=== PATIENT | female | born 1980 | race Caucasian/White ===

== ENCOUNTER 2017-12-11 15:02 | Emergency (ER) | payer OTHER ==
[2017-12-11 16:47] LABS: Basophils # (A) 0.1 k/uL (0-0.2); Basophils % (A) 0 %; Eosinophils # (A) 0.1 k/uL (0-0.7); Eosinophils % (A) 0 %; HCT 45.4 % (34.0-46.0); HGB 14.7 gm/dL (11.4-16.0); Lymphocytes # (A) 3.6 k/uL (1.0-4.8); Lymphocytes % (A) 27 %; MCH 27.9 pg (25.0-35.0); MCHC 32.4 g/dL (31.0-37.0); MCV 86.3 fL (80.0-100.0); Mean Platelet Volume 6.9; Monocytes # (A) 0.7 k/uL (0-1.0); Monocytes % (A) 6 %; Neutrophils # (A) 8.3 k/uL (1.3-7.7); Neutrophils % (A) 63 %; Platelet Count 444 k/uL (150-450); RBC 5.27 m/uL (3.80-5.40); RDW 14.9 % (11.5-15.5); WBC 13.2 k/uL (3.8-10.6)
[2017-12-11 16:54] LABS: Amorphous Sediment,Urine Rare /hpf; Appearance,Urine Cloudy (Clear); Bacteria,Urine Occasional /hpf; Bilirubin,Urine Negative (Negative); Blood,Urine Negative (Negative); Color,Urine Yellow; Glucose,Urine (UA) Negative (Negative); Ketones,Urine Negative (Negative); Leukocyte Esterase,Urine Moderate (Negative); Mucus,Urine Rare /hpf; Nitrite,Urine Negative (Negative); Protein,Urine Trace (Negative); RBC,Urine 3 /hpf (0-5); Specific Gravity,Urine 1.019 (1.001-1.035); Squamous Epithelial Cell,Urine 14 /hpf (0-4); Urobilinogen,Urine <2.0 mg/dL (<2.0); WBC,Urine 16 /hpf (0-5)
[2017-12-11 17:03] LABS: ALT 81 U/L (9-52); AST 53 U/L (14-36); Albumin 4.9 g/dL (3.5-5.0); Alkaline Phosphatase 68 U/L (38-126); Amylase 84 U/L (30-110); Anion Gap 18 mmol/L; Blood Urea Nitrogen 14 mg/dL (7-17); Calcium 10.4 mg/dL (8.4-10.2); Carbon Dioxide 22 mmol/L (22-30); Chloride 104 mmol/L (98-107); Glucose 99 mg/dL (74-99); Lipase 43 U/L (23-300); Potassium 4.3 mmol/L (3.5-5.1); Sodium 144 mmol/L (137-145); Total Bilirubin 0.6 mg/dL (0.2-1.3); Total Protein 9.3 g/dL (6.3-8.2)
[2017-12-11] MEDS ORDERED: SODIUM CHLORIDE 0.9% 1,000 ML IV ONE (18:52)
[2017-12-11] MEDS ORDERED: KETOROLAC 30 MG/ML 1 ML VIAL IVP STA (18:52)
[2017-12-11] MEDS ORDERED: RX INFO: IV CONTRAST WAS GIVEN 1 EACH MISC MISCELLANE PRN (18:52)
[2017-12-11] MEDS ORDERED: ONDANSETRON 4 MG/2 ML VIAL IVP STA (18:52)
--- NOTE | 2017-12-11 18:59 | ED ---
Abdominal Pain HPI - General Chief Complaint: Abdominal Pain Stated Complaint: abdominal pain Time Seen by Provider: 12/11/17 18:41 Source: patient Mode of arrival: ambulatory Limitations: no limitations - History of Present Illness Initial Comments: 37-year-old female patient presents to the emergency department today for evaluation of left-sided abdominal pain. Patient states this started yesterday evening. States that she has no will to keep down any food or fluids today. Has had multiple episodes of vomiting. Patient states she has had several episodes of diarrhea but denies any hematochezia or melena. 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 Patient states she has had chills and fever. States she has been taking ibuprofen for her symptoms however they're not helping. Patient has a history of hepatitis C. States that she has also been having abnormal vaginal discharge that is odorous. She denies any hematuria, dysuria, urinary frequency, urinary urgency. Patient states she has not had a menstrual period in the last 8 years and does not believe she is . She denies any recent travel or sick contacts. She denies any ingestion of questionable foods. Patient denies any recent rash, shortness breath, chest pain, back pain, numbness, tingling, dizziness, weakness, headache, visual changes, or any other complaints. - Related Data Home Medications Medication Instructions Recorded Confirmed Calcium Carb/Magnesium Ox,Carb 2 tab PO DAILY PRN 12/11/17 12/11/17 [Saud-Mag 500-250 MG Chewable] Hyoscyamine Sulfate [Levsin-Sl] 0.125 mg SL QID PRN 12/11/17 12/11/17 Loperamide HCl [Imodium A-D] 4 mg PO BID PRN 12/11/17 12/11/17 Mirtazapine [Remeron] 15 mg PO HS PRN 12/11/17 12/11/17 Multivitamins, Thera [Multivitamin 1 tab PO DAILY 12/11/17 12/11/17 (formulary)] Thiamine [Vitamin B-1] 100 mg PO DAILY 12/11/17 12/11/17 Trimethobenzamide HCl [Tigan] 300 mg PO Q6H PRN 12/11/17 12/11/17 busPIRone HCl [Buspar] 10 mg PO TID 12/11/17 12/11/17 Previous Rx's Medication Instructions Recorded Ondansetron [Zofran ODT] 4 mg PO Q8HR PRN #10 tab 12/11/17 Allergies Allergy/AdvReac Type Severity Reaction Status Date / Time No Known Allergies Allergy Verified 12/11/17 19:10 Review of Systems ROS Statement: Those systems with pertinent positive or pertinent negative responses have been documented in the HPI. ROS Other: All systems not noted in ROS Statement are negative. 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 Vital signs upon presentation are temperature 100.7F, pulse 110, respirations 18, blood pressure 130/77, pulse ox 100% on room air.) Eye exam: Present: normal appearance, PERRL, EOMI. Absent: scleral icterus, conjunctival injection, periorbital swelling ENT exam: Present: normal exam, normal oropharynx, mucous membranes moist Respiratory exam: Present: normal lung sounds bilaterally. Absent: respiratory distress, wheezes, rales, rhonchi, stridor Cardiovascular Exam: Present: regular rate, normal rhythm, normal heart sounds. Absent: systolic murmur, diastolic murmur, rubs, gallop, clicks GI/Abdominal exam: Present: soft, tenderness (Left lower quadrant tenderness), normal bowel sounds. Absent: distended, guarding, rebound, rigid External exam: Present: normal external exam Speculum exam: Present: vaginal discharge (Copious light thin vaginal discharge. ). Absent: normal speculum exam, vaginal bleeding By manual exam: Present: normal by manual exam. Absent: cervical motion tenderness, adnexal tenderness Neurological exam: Present: alert, oriented X3, CN II-XII intact Psychiatric exam: Present: normal affect, normal mood Skin exam: Present: warm, dry, intact, normal color. Absent: rash Course Vital Signs 12/11/17 15:24 Temperature 100.7 F H Pulse Rate 110 H Respiratory 18 Rate Blood Pressure 130/77 O2 Sat by Pulse 100 Oximetry Medical Decision Making - Medical Decision Making 37 year-old female patient presents to the emergency department today for evaluation of left-sided abdominal pain, vomiting, and diarrhea. Physical examination did reveal some left-sided abdominal tenderness, no rebound, no guarding. Labs reviewed and showed a mildly elevated white blood cell count at 13.2, neutrophils 8.3, AST 53, ALT 81, lactic acid 1.6. Patient was also complaining of increased vaginal discharge and odor. Speculum exam did reveal copious amounts of thin white discharge. Cultures were sent. Patient was treated for trichomoniasis. Did discuss HIV testing and she'll follow-up with the health department for this. Patient is on day 10 at [facility] facility, I feel her symptoms are more related to a gastroenteritis and withdrawal symptoms. She'll be given a prescription for Zofran to manage and nausea. We discussed clear liquid diet and advance as tolerated. She is instructed to follow-up with her primary care physician for recheck in 1-2 days. Return parameters discussed in detail. She verbalizes understanding and agrees with this plan. - Lab Data Result diagrams: 12/11/17 16:37 12/11/17 16:37 Lab Results 12/11/17 12/11/17 12/11/17 Range/Units 16:37 16:37 16:37 WBC 13.2 H (3.8-10.6) k/uL RBC 5.27 (3.80-5.40) m/uL Hgb 14.7 (11.4-16.0) gm/dL Hct 45.4 (34.0-46.0) % MCV 86.3 (80.0-100.0) fL MCH 27.9 (25.0-35.0) pg MCHC 32.4 (31.0-37.0) g/dL RDW 14.9 (11.5-15.5) % Plt Count 444 (150-450) k/uL Neutrophils % 63 % Lymphocytes % 27 % Monocytes % 6 % Eosinophils % 0 % Basophils % 0 % Neutrophils # 8.3 H (1.3-7.7) k/uL Lymphocytes # 3.6 (1.0-4.8) k/uL Monocytes # 0.7 (0-1.0) k/uL Eosinophils # 0.1 (0-0.7) k/uL Basophils # 0.1 (0-0.2) k/uL Sodium 144 (137-145) mmol/L Potassium 4.3 (3.5-5.1) mmol/L Chloride 104 (98-107) mmol/L Carbon Dioxide 22 (22-30) mmol/L Anion Gap 18 mmol/L BUN 14 (7-17) mg/dL Creatinine 0.90 (0.52-1.04) mg/dL Est GFR (CKD-EPI)AfAm >90 (>60 ml/min/1.73 sqM) Est GFR (CKD-EPI)NonAf 83 (>60 ml/min/1.73 sqM) Glucose 99 (74-99) mg/dL Plasma Lactic Acid Jez (0.7-2.0) mmol/L Calcium 10.4 H (8.4-10.2) mg/dL Total Bilirubin 0.6 (0.2-1.3) mg/dL AST 53 H (14-36) U/L ALT 81 H (9-52) U/L Alkaline Phosphatase 68 (38-126) U/L Total Protein 9.3 H (6.3-8.2) g/dL Albumin 4.9 (3.5-5.0) g/dL Amylase 84 (30-110) U/L Lipase 43 (23-300) U/L Urine Color Yellow Urine Appearance Cloudy H (Clear) Urine pH 8.0 (5.0-8.0) Ur Specific Fenton 1.019 (1.001-1.035) Urine Protein Trace H (Negative) Urine Glucose (UA) Negative (Negative) Urine Ketones Negative (Negative) Urine Blood Negative (Negative) Urine Nitrite Negative (Negative) Urine Bilirubin Negative (Negative) Urine Urobilinogen <2.0 (<2.0) mg/dL Ur Leukocyte Esterase Moderate H (Negative) Urine RBC 3 (0-5) /hpf Urine WBC 16 H (0-5) /hpf Ur Squamous Epith Cells 14 H (0-4) /hpf Amorphous Sediment Rare H (None) /hpf Urine Bacteria Occasional H (None) /hpf Urine Mucus Rare H (None) /hpf Urine HCG, Qual (Not Detectd) Trichomonas Ag (Rapid) (Negative) 05/21/18 05/21/18 05/21/18 Range/Units 16:37 19:37 20:52 WBC (3.8-10.6) k/uL RBC (3.80-5.40) m/uL Hgb (11.4-16.0) gm/dL Hct (34.0-46.0) % MCV (80.0-100.0) fL MCH (25.0-35.0) pg MCHC (31.0-37.0) g/dL RDW (11.5-15.5) % Plt Count (150-450) k/uL Neutrophils % % Lymphocytes % % Monocytes % % Eosinophils % % Basophils % % Neutrophils # (1.3-7.7) k/uL Lymphocytes # (1.0-4.8) k/uL Monocytes # (0-1.0) k/uL Eosinophils # (0-0.7) k/uL Basophils # (0-0.2) k/uL Sodium (137-145) mmol/L Potassium (3.5-5.1) mmol/L Chloride (98-107) mmol/L Carbon Dioxide (22-30) mmol/L Anion Gap mmol/L BUN (7-17) mg/dL Creatinine (0.52-1.04) mg/dL Est GFR (CKD-EPI)AfAm (>60 ml/min/1.73 sqM) Est GFR (CKD-EPI)NonAf (>60 ml/min/1.73 sqM) Glucose (74-99) mg/dL Plasma Lactic Acid Jez 1.6 (0.7-2.0) mmol/L Calcium (8.4-10.2) mg/dL Total Bilirubin (0.2-1.3) mg/dL AST (14-36) U/L ALT (9-52) U/L Alkaline Phosphatase (38-126) U/L Total Protein (6.3-8.2) g/dL Albumin (3.5-5.0) g/dL Amylase (30-110) U/L Lipase (23-300) U/L Urine Color Urine Appearance (Clear) Urine pH (5.0-8.0) Ur Specific Fenton (1.001-1.035) Urine Protein (Negative) Urine Glucose (UA) (Negative) Urine Ketones (Negative) Urine Blood (Negative) Urine Nitrite (Negative) Urine Bilirubin (Negative) Urine Urobilinogen (<2.0) mg/dL Ur Leukocyte Esterase (Negative) Urine RBC (0-5) /hpf Urine WBC (0-5) /hpf Ur Squamous Epith Cells (0-4) /hpf Amorphous Sediment (None) /hpf Urine Bacteria (None) /hpf Urine Mucus (None) /hpf Urine HCG, Qual Not Detected (Not Detectd) Trichomonas Ag (Rapid) Positive H (Negative) - Radiology Data Radiology results: report reviewed, image reviewed CT of the abdomen and pelvis with contrast was obtained. Report was reviewed in its entirety. Impression by Dr. Gray shows negative computed tomography scan of the abdomen and pelvis. Disposition Clinical Impression: Abdominal pain, Gastroenteritis, Sexually transmitted infection, Trichomoniasis Disposition: HOME SELF-CARE Condition: Good Instructions: Gastroenteritis (ED), Abdominal Pain (ED) Additional Instructions: Follow-up with her primary care physician for recheck in 1-2 days. Take medications as directed. Return here immediately for any new, worsening, or concerning symptoms. Prescriptions: Ondansetron [Zofran ODT] 4 mg PO Q8HR PRN #10 tab PRN Reason: Nausea Is patient prescribed a controlled substance at d/c from ED?: No Referrals: None,Stated [Primary Care Provider] - 1-2 days Time of Disposition: 20:35
--- NOTE | 2017-12-11 20:10 | CT ---
EXAMINATION TYPE: CT abdomen pelvis w con DATE OF EXAM: 12/11/2017 COMPARISON: NONE HISTORY: Left side abd pain, nausea and vomiting. CT DLP: 771 mGycm Automated exposure control for dose reduction was used. TECHNIQUE: Helical acquisition of images was performed from the lung bases through the pelvis. CONTRAST: Performed without Oral Contrast and with IV Contrast, patient injected with 100ml mL of Isovue 300. FINDINGS: Lung bases are clear. There is no pleural effusion. Heart size is normal. Liver spleen pancreas gallbladder appear normal. Bile ducts are not dilated. There is no adrenal mass. The kidneys show satisfactory contrast opacification. There is no hydroneph rosis. I see no intestinal wall thickening. There are no dilated loops. Bladder distends smoothly. Th ere is no pelvic mass. The bony structures are intact. Appendix is not seen. There is no sign of appe ndicitis. IMPRESSION: NEGATIVE CT SCAN OF THE ABDOMEN AND PELVIS.
[2017-12-11] MEDS ORDERED: cefTRIAXone 250 MG VIAL IM STA (21:03)
[2017-12-11] MEDS ORDERED: metroNIDAZOLE 500 MG TAB PO STA (21:03)
[2017-12-11] MEDS ORDERED: AZITHROMYCIN 500 MG TAB PO STA (21:03)
[2017-12-11 21:34] VITALS: BP 145/97; PULSE 98; RESP 19; TEMP 97.1
[2017-12-12 15:15] LABS: C. trachomatis,PCR Negative (Neg,Equiv); Chlamydia trachomatis Source Vagina; N. gonorrhoeae,PCR Negative (Neg,Equiv); Neisseria Source Vagina
== END 2017-12-11 21:44 | disposition home or self-care (01) ==
LOC: EC 15:02
DX: K52.9 Noninfective gastroenteritis and colitis, unspecified (principal); A59.9 Trichomoniasis, unspecified; D72.829 Elevated white blood cell count, unspecified; F11.20 Opioid dependence, uncomplicated; F41.9 Anxiety disorder, unspecified; F17.200 Nicotine dependence, unspecified, uncomplicated; Z79.899 Other long term (current) drug therapy; Z86.14 Personal history of Methicillin resistant Staphylococcus aureus infection
CPT/HCPCS: 36415; 80053; 82150; 83605; 83690; 85025; 81001; 81025; 87040; 87808; 87491; 87591; 87070; 87205; 74177; 99284; 96374; 96375; 96361; 96372; J2405; J0696; J1885; Q9967

== ENCOUNTER 2018-12-16 18:44 | Inpatient (IN) | payer OTHER ==
[2018-12-16] MEDS ORDERED: KETOROLAC 30 MG/ML 1 ML VIAL IVP STA (19:49)
[2018-12-16] MEDS ORDERED: SODIUM CHLORIDE 0.9% 1,000 ML IV STA (19:49)
--- NOTE | 2018-12-16 20:47 | ED ---
General Adult HPI - General Source: patient Mode of arrival: ambulatory Limitations: no limitations <Ellen Mack - Last Filed: 12/17/18 00:09> <Halima Palmer - Last Filed: 12/17/18 07:34> - General Chief complaint: Back Pain/Injury Stated complaint: back and rt leg pain Time Seen by Provider: 12/16/18 19:27 - History of Present Illness Initial comments: 38-year-old female patient presents to the emergency department today for evaluation of mid thoracic back pain that radiates down her back and up into her neck. Patient states it is radiating down her right leg as well. Patient states this pain started 3 days ago. Patient is also reporting multiple abscesses to the left axillary region. Patient states she did recently have these incised and drained and was started on Bactrim. States she has taken 2 full days of Bactrim at this point. States she has been having low-grade fevers around 99.5F as well as chills. Patient states she has been nauseated. Patient is also reporting white vaginal discharge. States that she has had Trichomonas in the past and feels this is the same infection. She denies any pelvic pain, hematuria, dysuria, urinary urgency, urinary frequency. Patient is currently being treated at [facility] for intravenous drug use with heroin. Patient denies any recent rash, shortness breath, chest pain, abdominal pain, diarrhea, constipation, back pain, numbness, tingling, dizziness, weakness, headache, visual changes, or any other complaints. (Ellen Mack) - Related Data Home Medications Medication Instructions Recorded Confirmed Calcium Carb/Magnesium Ox,Carb 2 tab PO DAILY PRN 12/11/17 12/17/18 [Saud-Mag 500-250 MG Chewable] Multivitamins, Thera [Multivitamin 1 tab PO DAILY 12/11/17 12/17/18 (formulary)] Thiamine [Vitamin B-1] 100 mg PO DAILY 12/11/17 12/17/18 Previous Rx's Medication Instructions Recorded Ondansetron [Zofran ODT] 4 mg PO Q8HR PRN #10 tab 12/11/17 Allergies Allergy/AdvReac Type Severity Reaction Status Date / Time No Known Allergies Allergy Verified 12/11/17 19:10 Review of Systems ROS Other: All systems not noted in ROS Statement are negative. <Ellen Mack M - Last Filed: 12/17/18 00:09> ROS Other: All systems not noted in ROS Statement are negative. <Halima Palmer P - Last Filed: 12/17/18 07:34> ROS Statement: Those systems with pertinent positive or pertinent negative responses have been documented in the HPI. 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 Vital signs upon presentation are temperature 98.5F, pulse 89, respirations 18, blood pressure 101/62, pulse ox 98% on room air.) Eye exam: Present: normal appearance, PERRL, EOMI. Absent: scleral icterus, conjunctival injection, periorbital swelling ENT exam: Present: normal exam, normal oropharynx, mucous membranes moist Neck exam: Present: normal inspection. Absent: tenderness, meningismus, lymphadenopathy Respiratory exam: Present: normal lung sounds bilaterally. Absent: respiratory distress, wheezes, rales, rhonchi, stridor Cardiovascular Exam: Present: regular rate, normal rhythm, normal heart sounds. Absent: systolic murmur, diastolic murmur, rubs, gallop, clicks GI/Abdominal exam: Present: soft, normal bowel sounds. Absent: distended, tenderness, guarding, rebound, rigid Extremities exam: Present: full ROM, normal capillary refill, other (There are multiple small abscesses noted to the left axillary region. No erythema or cellulitis is noted.). Absent: normal inspection, tenderness, pedal edema, joint swelling, calf tenderness Back exam: Present: vertebral tenderness (There is mid thoracic tenderness, left paraspinal swelling.). Absent: normal inspection Neurological exam: Present: alert, oriented X3, CN II-XII intact Psychiatric exam: Present: normal affect, normal mood Skin exam: Present: warm, dry, intact, normal color. Absent: rash <Ellen Mack - Last Filed: 12/17/18 00:09> Course Vital Signs 12/16/18 12/16/18 12/17/18 18:57 23:30 03:04 Temperature 98.5 F 100 F H Pulse Rate 89 74 82 Respiratory 18 18 18 Rate Blood Pressure 101/62 118/88 109/65 O2 Sat by Pulse 98 99 99 Oximetry Medical Decision Making - Lab Data Result diagrams: 12/16/18 21:02 12/16/18 21:02 - Radiology Data Radiology results: report reviewed, image reviewed <Ellen Mack - Last Filed: 12/17/18 00:09> - Lab Data Result diagrams: 12/16/18 21:02 12/16/18 21:02 <Halima Palmer - Last Filed: 12/17/18 07:34> - Medical Decision Making 38-year-old female patient with past medical history significant for IV drug use presents to the emergency department today for evaluation of new onset mid back pain with radiation down the right leg and up to her neck. Patient does report low-grade intermittent fevers over the last few days. States that she does have known abscesses to the left axilla for which she did start Bactrim 2 days ago. Physical examination did reveal healing abscesses to the left axilla, these have been incised and drained. There is tenderness over the midthoracic spine with some mild soft tissue swelling to the left paraspinal region. No erythema or evidence of cutaneous abscess in this region. Labs reviewed and did reveal elevated white blood cell count at 15.2. Lactic acid was normal. Sed rate and CRP were elevated. CT of the thoracic spine with contrast was obtained and showed evidence of Schmorl's nodes and height loss and T11. There is also evidence for pulmonary nodules which were felt to possibly be infectious. Given patient's history of IV drug use, there is concern for epidural abscess with new onset back pain, presence of pulmonary nodules raises concern for septic emboli, given multiple areas of infection we will rule out endocarditis as well. Patient was started on vancomycin and cefepime. We will admit to hospital for further evaluation, ECHO, and MRI. (Ellen Mack) I personally saw and Evaluated the patient, patient sleeping but diaphoretic, afebrile. I do agree with the plan for admission for optic workup and high suspicion for an new carditis due to IV drug abuse. (Halima Palmer) - Lab Data Lab Results 12/16/18 12/16/18 12/16/18 Range/Units 21:02 21:02 21:02 WBC 15.2 H (3.8-10.6) k/uL RBC 4.20 (3.80-5.40) m/uL Hgb 11.6 (11.4-16.0) gm/dL Hct 36.2 (34.0-46.0) % MCV 86.2 (80.0-100.0) fL MCH 27.7 (25.0-35.0) pg MCHC 32.1 (31.0-37.0) g/dL RDW 15.1 (11.5-15.5) % Plt Count 239 (150-450) k/uL Neutrophils % 73 % Lymphocytes % 17 % Monocytes % 6 % Eosinophils % 1 % Basophils % 0 % Neutrophils # 11.0 H (1.3-7.7) k/uL Lymphocytes # 2.6 (1.0-4.8) k/uL Monocytes # 0.9 (0-1.0) k/uL Eosinophils # 0.1 (0-0.7) k/uL Basophils # 0.0 (0-0.2) k/uL ESR Cancelled Sodium 137 (137-145) mmol/L Potassium 4.3 (3.5-5.1) mmol/L Chloride 109 H (98-107) mmol/L Carbon Dioxide 21 L (22-30) mmol/L Anion Gap 7 mmol/L BUN 18 H (7-17) mg/dL Creatinine 0.91 (0.52-1.04) mg/dL Est GFR (CKD-EPI)AfAm >90 (>60 ml/min/1.73 sqM) Est GFR (CKD-EPI)NonAf 81 (>60 ml/min/1.73 sqM) Glucose 90 (74-99) mg/dL Plasma Lactic Acid Jez 0.9 (0.7-2.0) mmol/L Calcium 8.9 (8.4-10.2) mg/dL Total Bilirubin 0.2 (0.2-1.3) mg/dL AST 88 H (14-36) U/L ALT 104 H (9-52) U/L Alkaline Phosphatase 109 (38-126) U/L C-Reactive Protein 166.2 H (<10.0) mg/L Total Protein 6.5 (6.3-8.2) g/dL Albumin 3.1 L (3.5-5.0) g/dL Urine Color Urine Appearance (Clear) Urine pH (5.0-8.0) Ur Specific [place]akes[place] (1.001-1.035) Urine Protein (Negative) Urine Glucose (UA) (Negative) Urine Ketones (Negative) Urine Blood (Negative) Urine Nitrite (Negative) Urine Bilirubin (Negative) Urine Urobilinogen (<2.0) mg/dL Ur Leukocyte Esterase (Negative) Urine HCG, Qual (Not Detectd) Trichomonas Ag (Rapid) (Negative) 12/16/18 12/16/18 12/16/18 Range/Units 21:02 21:06 21:06 WBC (3.8-10.6) k/uL RBC (3.80-5.40) m/uL Hgb (11.4-16.0) gm/dL Hct (34.0-46.0) % MCV (80.0-100.0) fL MCH (25.0-35.0) pg MCHC (31.0-37.0) g/dL RDW (11.5-15.5) % Plt Count (150-450) k/uL Neutrophils % % Lymphocytes % % Monocytes % % Eosinophils % % Basophils % % Neutrophils # (1.3-7.7) k/uL Lymphocytes # (1.0-4.8) k/uL Monocytes # (0-1.0) k/uL Eosinophils # (0-0.7) k/uL Basophils # (0-0.2) k/uL ESR Sodium (137-145) mmol/L Potassium (3.5-5.1) mmol/L Chloride (98-107) mmol/L Carbon Dioxide (22-30) mmol/L Anion Gap mmol/L BUN (7-17) mg/dL Creatinine (0.52-1.04) mg/dL Est GFR (CKD-EPI)AfAm (>60 ml/min/1.73 sqM) Est GFR (CKD-EPI)NonAf (>60 ml/min/1.73 sqM) Glucose (74-99) mg/dL Plasma Lactic Acid Jez (0.7-2.0) mmol/L Calcium (8.4-10.2) mg/dL Total Bilirubin (0.2-1.3) mg/dL AST (14-36) U/L ALT (9-52) U/L Alkaline Phosphatase (38-126) U/L C-Reactive Protein (<10.0) mg/L Total Protein (6.3-8.2) g/dL Albumin (3.5-5.0) g/dL Urine Color Yellow Urine Appearance Clear (Clear) Urine pH 7.5 (5.0-8.0) Ur Specific [place] 1.029 (1.001-1.035) Urine Protein Trace H (Negative) Urine Glucose (UA) Negative (Negative) Urine Ketones Negative (Negative) Urine Blood Negative (Negative) Urine Nitrite Negative (Negative) Urine Bilirubin Negative (Negative) Urine Urobilinogen <2.0 (<2.0) mg/dL Ur Leukocyte Esterase Negative (Negative) Urine HCG, Qual Not Detected (Not Detectd) Trichomonas Ag (Rapid) Negative (Negative) 12/16/18 Range/Units 22:34 WBC (3.8-10.6) k/uL RBC (3.80-5.40) m/uL Hgb (11.4-16.0) gm/dL Hct (34.0-46.0) % MCV (80.0-100.0) fL MCH (25.0-35.0) pg MCHC (31.0-37.0) g/dL RDW (11.5-15.5) % Plt Count (150-450) k/uL Neutrophils % % Lymphocytes % % Monocytes % % Eosinophils % % Basophils % % Neutrophils # (1.3-7.7) k/uL Lymphocytes # (1.0-4.8) k/uL Monocytes # (0-1.0) k/uL Eosinophils # (0-0.7) k/uL Basophils # (0-0.2) k/uL ESR 49 H Sodium (137-145) mmol/L Potassium (3.5-5.1) mmol/L Chloride (98-107) mmol/L Carbon Dioxide (22-30) mmol/L Anion Gap mmol/L BUN (7-17) mg/dL Creatinine (0.52-1.04) mg/dL Est GFR (CKD-EPI)AfAm (>60 ml/min/1.73 sqM) Est GFR (CKD-EPI)NonAf (>60 ml/min/1.73 sqM) Glucose (74-99) mg/dL Plasma Lactic Acid Jez (0.7-2.0) mmol/L Calcium (8.4-10.2) mg/dL Total Bilirubin (0.2-1.3) mg/dL AST (14-36) U/L ALT (9-52) U/L Alkaline Phosphatase (38-126) U/L C-Reactive Protein (<10.0) mg/L Total Protein (6.3-8.2) g/dL Albumin (3.5-5.0) g/dL Urine Color Urine Appearance (Clear) Urine pH (5.0-8.0) Ur Specific [place] (1.001-1.035) Urine Protein (Negative) Urine Glucose (UA) (Negative) Urine Ketones (Negative) Urine Blood (Negative) Urine Nitrite (Negative) Urine Bilirubin (Negative) Urine Urobilinogen (<2.0) mg/dL Ur Leukocyte Esterase (Negative) Urine HCG, Qual (Not Detectd) Trichomonas Ag (Rapid) (Negative) - Radiology Data CT of the thoracic spine with intravenous contrast was obtained. Report was reviewed in its entirety. Impression by Dr. Stoner shows multilevel Schmorl's node formation. Mild superior endplate height loss which Schmorl's node formation involving the T11 vertebral body. Several compression fractures difficult to exclude. Perhaps a follow-up MRI will be useful. Multiple nonspecific pulmonary nodules. These may be infectious, inflammatory, or neoplastic. Consider short interval follow-up PET CT for additional evaluation (Ellen Mack) Disposition Decision to Admit Reason: Admit from EC Decision Date: 12/17/18 Decision Time: 00:02 <Ellen Mack - Last Filed: 12/17/18 00:09> <Halima aPlmer - Last Filed: 12/17/18 07:34> Clinical Impression: Back pain, Pulmonary infection, Abscess of left axilla Disposition: ADMITTED IP TO THIS HOSP Condition: Serious
[2018-12-16 21:33] LABS: Appearance,Urine Clear (Clear); Bilirubin,Urine Negative (Negative); Blood,Urine Negative (Negative); Color,Urine Yellow; Glucose,Urine (UA) Negative (Negative); Ketones,Urine Negative (Negative); Leukocyte Esterase,Urine Negative (Negative); Nitrite,Urine Negative (Negative); PH, Urine 7.5 (5.0-8.0); Protein,Urine Trace (Negative); Specific Gravity,Urine 1.029 (1.001-1.035); Urobilinogen,Urine <2.0 mg/dL (<2.0)
[2018-12-16 21:36] LABS: Basophils % (A) 0 %; Eosinophils # (A) 0.1 k/uL (0-0.7); Eosinophils % (A) 1 %; HCT 36.2 % (34.0-46.0); HGB 11.6 gm/dL (11.4-16.0); Lymphocytes # (A) 2.6 k/uL (1.0-4.8); Lymphocytes % (A) 17 %; MCH 27.7 pg (25.0-35.0); MCHC 32.1 g/dL (31.0-37.0); MCV 86.2 fL (80.0-100.0); Mean Platelet Volume 7.8; Monocytes # (A) 0.9 k/uL (0-1.0); Monocytes % (A) 6 %; Neutrophils % (A) 73 %; Platelet Count 239 k/uL (150-450); RDW 15.1 % (11.5-15.5); WBC 15.2 k/uL (3.8-10.6)
[2018-12-16 21:44] LABS: ALT 104 U/L (9-52); AST 88 U/L (14-36); Albumin 3.1 g/dL (3.5-5.0); Alkaline Phosphatase 109 U/L (38-126); Anion Gap 7 mmol/L; Blood Urea Nitrogen 18 mg/dL (7-17); Calcium 8.9 mg/dL (8.4-10.2); Carbon Dioxide 21 mmol/L (22-30); Chloride 109 mmol/L (98-107); Glucose 90 mg/dL (74-99); Potassium 4.3 mmol/L (3.5-5.1); Sodium 137 mmol/L (137-145); Total Bilirubin 0.2 mg/dL (0.2-1.3); Total Protein 6.5 g/dL (6.3-8.2)
[2018-12-16 22:13] LABS: C Reactive Protein 166.2 mg/L (<10.0)
--- NOTE | 2018-12-16 22:26 | CT ---
EXAM: CT Thoracic Spine Without Intravenous Contrast CLINICAL HISTORY: ITS.REASON CT Reason: Pain TECHNIQUE: Axial computed tomography images of the thoracic spine without intravenous contrast. CTDI is 10.7 mGy and DLP is 459 mGy-cm. This CT exam was performed using one or more of the following dose reduction techniques: automated exposure control, adjustment of the mA and/or kV according to patient size, and/or use of iterative reconstruction technique. COMPARISON: No relevant prior studies available. FINDINGS: Vertebrae: There is multilevel endplate Schmorl's node formation. There is Schmorl's node formation at the superior endplate of T11 vertebral body with mild vertebral body height loss. Discs/spinal canal/neural foramina: No acute findings. No spinal canal stenosis. Soft tissues: Unremarkable. Lymph nodes: No adenopathy per size criteria. Lungs: 5 mm nodule in the left upper lobe. 8mm nodule in the right upper lobe. 5 mm subpleural nodule in the right upper lobe. 1.2 cm subpleural nodule in the left lower lobe. Multiple nonspecific groundglass opacities. IMPRESSION: Multilevel Schmorl's node formation. Mild superior endplate height loss which Schmorl's node information involving the T11 vertebral body. A subtle compression fracture is difficult to exclude. Perhaps a follow-up MRI would be useful to further evaluate if there is a history of recent trauma. Multiple nonspecific pulmonary nodules. These may be infectious, inflammatory, or neoplastic. Consider short interval follow-up or PET CT for additional evaluation.
[2018-12-16] MEDS ORDERED: CEFEPIME 1 GM in SODIUM CHLORIDE 0.9% 50 ML IVPB STA (23:07)
[2018-12-16] MEDS ORDERED: VANCOMYCIN IV PER PHARMACY 1 EACH MISC MISCELLANE PRN (23:07)
[2018-12-16] MEDS ORDERED: VANCOMYCIN 1,000 MG in SODIUM CHLORIDE 0.9% 250 ML IVPB STA (23:09)
[2018-12-16] MEDS ORDERED: NALOXONE 0.4 MG/ML 1 ML VIAL IV PRN (23:56)
[2018-12-17] MEDS: ACETAMINOPHEN TAB 325 MG TAB PO PRN ×5 (00:57→21:59)
[2018-12-17] MEDS: SODIUM CHLORIDE 0.9% 1,000 ML IV SCH ×2 (01:02→11:47)
[2018-12-17 03:59] VITALS: BMI 23.4
[2018-12-17] MEDS: CEFEPIME 1 GM in SODIUM CHLORIDE 0.9% 50 ML IVPB SCH ×2 (08:25→08:29)
[2018-12-17] MEDS: KETOROLAC 30 MG/ML 1 ML VIAL IVP SCH ×3 (08:30→20:36)
--- NOTE | 2018-12-17 09:23 | HP ---
HISTORY AND PHYSICAL CHIEF COMPLAINT: A 38-year-old white female came in with mid thoracic pain radiating down her back up into her neck. Pain down her right leg as well. Started 3 days ago. She has had multiple abscesses in the left axillary region. size of the drain, started on Bactrim, she take two full days of Bactrim at this point. Low-grade fevers up to 99, some chills. She was admitted to the hospital with abscesses in the axillary region and pulmonary nodules possible septic emboli. MRI of her lower back. She also has had Trichomonas in the past. Possible says this is the same infection. Denies dysuria, frequency, urgency, hesitancy. She has been at [facility] for rehab for heroin abuse. Denies abdominal pain, paresthesias in the pelvis, constipation, dizziness, or weakness. ALLERGIES: Negative. REVIEW OF SYSTEMS: Fourteen point review of systems negative except for mentioned in HPI. 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 SOCIAL HISTORY: Current everyday smoker. PHYSICAL EXAMINATION: VITAL SIGNS: Temp T-max is 100 degrees Fahrenheit, pulse is 74-89, respiratory rate 16 to 18, blood pressure is 101 to 118 over 60s to 80s. Cardiovascular S1, S2. Lungs transmitted upper sounds. Hematology negative Homans. Psych fair mood and affect. NEUROLOGICAL: Cranial nerves are intact. Skin shows some masses in the axillary area as mentioned. Lungs are distant sounds. No rales, rhonchi, or wheeze. Heart S1, S2. Small abscesses in the left axillary region. LABORATORY DATA: White cells 15.2. ASSESSMENT: 1. IV drug abuse. 2. Polysubstance abuse. 3. Axillary abscesses. 4. Multiple pulmonary nodules to rule out septic emboli. 5. Multiple spinal pain, rule out any spinal abscess with CT scan. Get neuro consult, Infectious Disease and Pulmonary consult. Also have to rule out pericarditis. Echo was ordered. Please see further orders. MMODL / IJN: [id number] /
--- NOTE | 2018-12-17 10:23 | P.CNPUL ---
History of Present Illness Consult date: 12/17/18 Reason for consult: dyspnea, cough, COPD Chief complaint: Back pain History of present illness: 38-year-old female who was seen evaluated examined in the floor this patient is transferred from [facility] where she was admitted for drug rehab, she has about 6 year history of the IV heroin use she presented and evaluated in emergency department from mid thoracic back pain that radiates down her back and up into her neck. Patient states it is radiating down her right leg as well. Patient states this pain started 3 days ago. Patient is also reporting multiple abscesses to the left axillary region. Patient states she did recently have these incised and drained and was started on Bactrim. States she has taken 2 full days of Bactrim at this point. States she has been having low-grade fevers around 99.5F as well as chills. Patient states she has been nauseated. Patient is also reporting white vaginal discharge. States that she has had Trichomonas in the past and feels this is the same infection. She denies any pelvic pain, hematuria, dysuria, urinary urgency, urinary frequency. Patient is currently being treated at [facility] rehab facility for intravenous drug use with heroin. Patient denies any recent rash, shortness breath, chest pain, abdominal pain, diarrhea, constipation, back pain, numbness, tingling, dizziness, weakness, headache, visual changes, or any other complaints. 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 and smoking Review of Systems All systems: negative Past Medical History Additional Past Medical History / Comment(s): hep c History of Any Multi-Drug Resistant Organisms: MRSA Date of last positivie culture/infection: 11/13/2017 MDRO Source:: middle finger leftg hand Past Surgical History: Orthopedic Surgery Additional Past Surgical History / Comment(s): Amputation of LT 3rd digit Past Anesthesia/Blood Transfusion Reactions: No Reported Reaction Past Psychological History: Anxiety, Depression Smoking Status: Current some day smoker Past Alcohol Use History: None Reported Past Drug Use History: Heroin, Opiates - Past Family History Mother Family Medical History: Hypertension Medications and Allergies Home Medications Medication Instructions Recorded Confirmed Type Multivitamins, Thera [Multivitamin 1 tab PO DAILY 12/11/17 12/17/18 History (formulary)] Acetaminophen Tab [Tylenol Tab] 650 mg PO Q6H PRN 12/17/18 12/17/18 History Ibuprofen [Motrin Ib] 200 mg PO Q4H PRN 12/17/18 12/17/18 History Allergies Allergy/AdvReac Type Severity Reaction Status Date / Time No Known Allergies Allergy Verified 12/17/18 08:38 Physical Exam Vitals: Vital Signs Temp Pulse Pulse Resp BP BP Pulse Ox 12/17/18 04:49 98.6 F 90 17 98/62 98 12/17/18 04:00 90 17 12/17/18 03:04 100 F H 82 18 109/65 99 12/16/18 23:30 74 18 118/88 99 12/16/18 18:57 98.5 F 89 18 101/62 98 Intake and Output 12/16/18 12/17/18 12/17/18 22:59 06:59 14:59 Intake Total 240 Balance 240 Intake: Oral 240 Other: # Voids 1 Weight 58.196 kg - Constitutional General appearance: average body habitus, cooperative, disheveled, mild distress - EENT Eyes: anicteric sclerae, EOMI, PERRLA, poor dentition, normal appearance ENT: normal oropharynx Ears: bilateral: normal - Neck Neck: normal ROM Carotids: bilateral: upstroke normal, bruit absent Thyroid: bilateral: normal size - Respiratory Respiratory: bilateral: CTA - Cardiovascular Rhythm: irregularly irregular Heart sounds: normal: S1, S2 - Neurologic Neurologic: CNII-XII intact - Musculoskeletal Musculoskeletal: gait normal, generalized weakness, strength equal bilaterally - Psychiatric Psychiatric: A&O x's 3, appropriate affect, intact judgment & insight Midthoracic vertebral tenderness is present along with left some paraspinal swelling Results - Laboratory Findings CBC and BMP: 12/16/18 21:02 12/16/18 21:02 Abnormal lab findings: Abnormal Labs 12/16/18 12/16/18 12/16/18 21:02 21:02 21:06 WBC 15.2 H Neutrophils # 11.0 H ESR Chloride 109 H Carbon Dioxide 21 L BUN 18 H AST 88 H ALT 104 H C-Reactive Protein 166.2 H Albumin 3.1 L Urine Protein Trace H 12/16/18 22:34 WBC Neutrophils # ESR 49 H Chloride Carbon Dioxide BUN AST ALT C-Reactive Protein Albumin Urine Protein - Diagnostic Findings CT scan - chest: report reviewed (5 mm nodule in the left upper lobe, 8 mm nodule in the right upper lobe, with and another 5 mm nodule, left 1.2 cm lower lobe nodule subpleural multiple nonspecific groundglass opacity, computed tomography scan of the 11 vertebra revealed compression fracture versus endplate height loss MRI is recommended) Assessment and Plan Assessment: Multiple bilateral pulmonary nodules may be septic nodules COPD T11 vertebral body height loss with endplate, MRI is pending Obtain blood culture Echocardiogram to rule out endocarditis Plan: As above Time with Patient: Greater than 30
--- NOTE | 2018-12-17 10:42 | P.CNOR ---
History of Present Illness - [facility] Consult date: 12/17/18 Requesting physician: Lucas Condon Consult reason: back pain (Intractable thoracic back pain), other (Right lower extremity radiculopathy) History of present illness: Patient is a pleasant 38-year-old female who is seeing exam of the bedside for further evaluation for intractable thoracic back pain and right lower extremity radiculopathy. Patient has been residing at [facility] due to previous heroin abuse. Patient states she had been doing well at rehabilitation and only had 2 days left prior to discharge. Over the past 3- 4 days she has been experiencing severe midthoracic back pain. She also has pain that radiates down the right posterior lateral thigh and over the right anterior acevedo. She denies any specific injuries. She presented to the emergency department for further evaluation. CT of the thoracic spine was taken at that time. MRI imaging has been ordered of the thoracic and lumbar spines. She denies specific lower extremity weakness bilaterally. She does have difficulty standing on her right lower extremity due to pain. She is able to stand on toes and heels on the right lower extremity without significant difficulty. Patient denies any left lower extremity radiculopathy. Patient has evidence of multiple skin/scar lopez on the upper and lower extremities. Patient states they are from living outside for an extended period of time. She states at the time of discharge from [facility] she is unsure where her living situation will be. She states they were trying to set her up with a three-quarter house but is unsure if that'll be approved. Patient also has a history of axillary abscess which dates have been treated with medication and has not been drained. Patient currently has an elevated WBC at 15.2 and elevated neutrophils at 11. 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 Past Anesthesia/Blood Transfusion Reactions: No Reported Reaction Past Psychological History: Anxiety, Depression Smoking Status: Current some day smoker Past Alcohol Use History: None Reported Past Drug Use History: Heroin, Opiates - Past Family History Mother Family Medical History: Hypertension Medications and Allergies Home Medications Medication Instructions Recorded Confirmed Type Multivitamins, Thera [Multivitamin 1 tab PO DAILY 12/11/17 12/17/18 History (formulary)] Acetaminophen Tab [Tylenol Tab] 650 mg PO Q6H PRN 12/17/18 12/17/18 History Ibuprofen [Motrin Ib] 200 mg PO Q4H PRN 12/17/18 12/17/18 History Allergies Allergy/AdvReac Type Severity Reaction Status Date / Time No Known Allergies Allergy Verified 12/17/18 08:38 Physical Examination Physical exam: Patient is awake, alert, and oriented 3 Vital signs stable Good chest excursion with deep inspiration and expiration Examination of thoracic and lumbar spine reveals skin is intact with no abrasions, ulcerations, or bruises; no erythema, purulence or signs of infection Significant pain with palpation along the mid thoracic spine No significant pain with palpation over the lumbar spine Evidence of multiple tattoos along the midline of the thoracic and lumbar spine; multiple tattoos over the bilateral upper extremities and lower extremities Evidence of multiple skin lopez/scars over the bilateral upper extremity and lower extremities Dorsiflexion, plantarflexion, and extensor hallucis longus positive sustained bilaterally Patient is able to stand on toe and heel bilaterally Lower extremity strength 5/5 bilaterally Patellar reflex 1+ bilaterally No lower extremity hyperreflexia bilaterally Straight leg test negative bilateral lower extremities No signs or symptoms of DVT; no calf pain Neurovascularly intact Results CT of thoracic spine taken on 12/16/2018: Multiple endplate Schmorl's node formation with node formation superior endplate of T11 with vertebral body height loss in which subtle compression fracture deformity is difficult to exclude; no evidence of spinal canal stenosis; multiple nonspecific pulmonary nodules which may be infectious, inflammatory, or neoplastic - Labs Labs: Abnormal Lab Results - Last 24 Hours (Table) 12/16/18 12/16/18 12/16/18 Range/Units 21:02 21:02 21:06 WBC 15.2 H (3.8-10.6) k/uL Neutrophils # 11.0 H (1.3-7.7) k/uL ESR (0-20) mm/hr Chloride 109 H (98-107) mmol/L Carbon Dioxide 21 L (22-30) mmol/L BUN 18 H (7-17) mg/dL AST 88 H (14-36) U/L ALT 104 H (9-52) U/L C-Reactive Protein 166.2 H (<10.0) mg/L Albumin 3.1 L (3.5-5.0) g/dL Urine Protein Trace H (Negative) 12/16/18 Range/Units 22:34 WBC (3.8-10.6) k/uL Neutrophils # (1.3-7.7) k/uL ESR 49 H (0-20) mm/hr Chloride (98-107) mmol/L Carbon Dioxide (22-30) mmol/L BUN (7-17) mg/dL AST (14-36) U/L ALT (9-52) U/L C-Reactive Protein (<10.0) mg/L Albumin (3.5-5.0) g/dL Urine Protein (Negative) Microbiology - Last 24 Hours (Table) 12/16/18 21:02 Genital Culture - Preliminary Vaginal H & H 12/16/18 Range/Units 21:02 Hgb 11.6 (11.4-16.0) gm/dL Hct 36.2 (34.0-46.0) % Result Diagrams: 12/16/18 21:02 12/16/18 21:02 Assessment and Plan Assessment: Assessment: Intractable thoracic back pain Right lower extremity radiculopathy Multiple thoracic endplate Schmorl's node formation Possible acute T11 compression fracture deformity Multiple nonspecific pulmonary nodule History of heroin abuse (1) Intractable back pain Current Visit: Yes Status: Acute Code(s): M54.9 - DORSALGIA, UNSPECIFIED SNOMED Code(s): 753855519 (2) Radiculopathy with lower extremity symptoms Current Visit: Yes Status: Acute Code(s): M54.10 - RADICULOPATHY, SITE UNSPECIFIED SNOMED Code(s): 49689814 (3) History of heroin abuse Current Visit: Yes Status: Acute Code(s): F11.11 - OPIOID ABUSE, IN REMISSION SNOMED Code(s): 951740727 (4) Schmorl's nodes of thoracic region Current Visit: Yes Status: Acute Code(s): M51.44 - SCHMORL'S NODES, THORACIC REGION SNOMED Code(s): 35257066 (5) Pulmonary nodules Current Visit: Yes Status: Acute Code(s): R91.8 - OTHER NONSPECIFIC ABNORMAL FINDING OF LUNG FIELD SNOMED Code(s): 947433551 Plan: Plan: 1. After further examination the patient, further discussion with the patient, and review of imaging, we are currently await for MRI results of the thoracic spine and lumbar spine before proceeding forward with a plan of care. Patient has been experiencing severe midthoracic back pain or the past 3-4 days that has not been able to be controlled in the outpatient setting. She is also experiencing right lower extremity radiculopathy symptoms and has difficulty standing on the right leg due to her symptoms. She does have some evidence of some bony changes at her thoracic spine. She has an elevated WBC and neutrophil count. We will plan review her thoracic and lumbar MRI results following the completion of these MRIs and wIll discuss further treatment options at that time. She may continue with medication as prescribed for pain control including Toradol. Patient is unable to receive narcotic medications due to her previous history of heroin abuse. 2. Patient will continue to be seen and examined by medicine and pulmonology for her other medical diagnoses 3. Patient waiting for for consultation with infectious disease Time with Patient: Greater than 30 (Including obtaining history, physical examination, reviewing of imaging, and dictation.)
[2018-12-17] MEDS: VANCOMYCIN 1,000 MG in SODIUM CHLORIDE 0.9% 250 ML IVPB SCH (11:46)
[2018-12-17] MEDS ORDERED: KETOROLAC 30 MG/ML 1 ML VIAL IVP SCH (12:00)
--- NOTE | 2018-12-17 15:19 | ECHOF ---
Referral Reason:R/O endocarditis MEASUREMENTS -------- HEIGHT: 157.5 cm WEIGHT: 58.1 kg BP: 98/62 RVIDd: 2.6 cm (< 3.3) IVSd: 1.2 cm (0.6 - 1.1) LVIDd: 2.6 cm (3.9 - 5.3) LVPWd: 1.1 cm (0.6 - 1.1) IVSs: 1.3 cm LVIDs: 2.1 cm LVPWs: 1.7 cm LA Diam: 3.2 cm (2.7 - 3.8) LAESV Index (A-L): 17.18 ml/m Ao Diam: 3.1 cm (2.0 - 3.7) AV Cusp: 2.3 cm (1.5 - 2.6) EPSS: 0.4 cm MV E Mauricio: 0.81 m/s MV DecT: 283 ms MV A Mauricio: 1.04 m/s MV E/A Ratio: 0.78 MV EF SLOPE: 63.21 mm/s (70 - 150) MV EXCURSION: 1.52 cm (> 18.000) FINDINGS -------- Sinus rhythm. This was a technically excellent study. The left ventricular size is normal. There is borderline concentric left ventricular hypertrophy. Overall left ventricular systolic function is normal with, an EF between 60 - 65 %. The right ventricle is normal in size. Left atrium is normal size by volume. The right atrium is normal in size and function. The aortic valve is trileaflet and appears structurally normal. The mitral valve is normal. The tricuspid valve appears structurally normal. Trace/mild (physiologic) pulmonic regurgitation. The aortic root size is normal. Normal inferior vena cava with normal inspiratory collapse consistent with estimated right atrial pre ssure of 10 mmHg. The pericardium is normal. CONCLUSIONS -------- 1. Sinus rhythm. 2. This was a technically excellent study. 3. The left ventricular size is normal. 4. There is borderline concentric left ventricular hypertrophy. 5. Overall left ventricular systolic function is normal with, an EF between 60 - 65 %. 6. The right ventricle is normal in size. 7. Left atrium is normal size by volume. 8. The right atrium is normal in size and function. 9. The aortic valve is trileaflet and appears structurally normal. 10. The mitral valve is normal. 11. The tricuspid valve appears structurally normal. 12. Trace/mild (physiologic) pulmonic regurgitation. 13. The aortic root size is normal. 14. Normal inferior vena cava with normal inspiratory collapse consistent with estimated right atrial pressure of 10 mmHg. 15. The pericardium is normal. UPPER LEATHER CUTTER: ANGELIA Harrington
[2018-12-17] MEDS: hydrOXYzine HCL 25 MG TAB PO PRN (23:12)
--- NOTE | 2018-12-18 00:26 | P.CONS ---
History of Present Illness - Reason for Consult Consult date: 12/17/18 Bacteremia Requesting physician: Lucas Condon - Chief Complaint Mid back pain 3 days - History of Present Illness Patient is a 38-year-old female past medical history significant for IV drug use currently undergoing rehab at [place] has been brought to the ER at [facility] for evaluation of a mid back pain And he started about 3 days ago and described to be sharp excruciating, stenotrophomonas 10 with severe with some improvement with the pain medication and radiation down the right posterior leg area the patient denies having any b owel or bladder problem denies having any weakness in the leg the patient complaining of some low-grade fever and chills, in addition the patient also been complaining of painful lump in her left axillary area for the same duration apparently that has been drained and the patient was started on oral Bactrim DS with the patient has taken for about 2 days with the symptoms and the patient was evaluated by the physician on presentation hospital the patient did have low-grade fever 100 white count was elevated she did have a CT of the thoracic spine with evidence of abnormality at T11 thoracic vertebra the patient has been started on cefepime and vancomycin with a blood culture positive with gram- positive cocci infection disease was consulted for further recommendation regarding antibiotic therapy Review of Systems CONSTITUTIONAL: Positive for weakness. Fever EYES: No complaint. ENT:No complaint. RESPIRATORY: No complaint. CARDIOVASCULAR: No complaint. GENITOURINARY: No complaint. GASTROINTESTINAL: No complaint. MUSCULOSKELETAL: As per history of present illness INTEGUMENTARY: As per history of present illness. PSYCHOLOGICAL: No complaint. ENDOCRINE: No complaint. NEUROLOGIC: No complaint. 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 Past Anesthesia/Blood Transfusion Reactions: No Reported Reaction Past Psychological History: Anxiety, Depression Smoking Status: Current some day smoker Past Alcohol Use History: None Reported Past Drug Use History: Heroin, Opiates - Past Family History Mother Family Medical History: Hypertension Medications and Allergies Home Medications Medication Instructions Recorded Confirmed Type Multivitamins, Thera [Multivitamin 1 tab PO DAILY 12/11/17 12/17/18 History (formulary)] Acetaminophen Tab [Tylenol Tab] 650 mg PO Q6H PRN 12/17/18 12/17/18 History Ibuprofen [Motrin Ib] 200 mg PO Q4H PRN 12/17/18 12/17/18 History Allergies Allergy/AdvReac Type Severity Reaction Status Date / Time No Known Allergies Allergy Verified 12/17/18 08:38 Physical Exam Vitals: Vital Signs Temp Pulse Pulse Resp BP BP Pulse Ox 12/17/18 04:49 98.6 F 90 17 98/62 98 12/17/18 04:00 90 17 12/17/18 03:04 100 F H 82 18 109/65 99 12/16/18 23:30 74 18 118/88 99 12/16/18 18:57 98.5 F 89 18 101/62 98 Intake and Output 12/16/18 12/17/18 12/17/18 22:59 06:59 14:59 Intake Total 240 Balance 240 Intake: Oral 240 Other: # Voids 1 Weight 58.196 kg GENERAL DESCRIPTION: Middle-aged female lying in bed, no distress. No tachypnea or accessory muscle of respiration use. HEENT: Shows Pallor , no scleral icterus. Oral mucous membrane is dry. No phary ngeal erythema or thrush NECK: Trachea central, no thyromegaly. LUNGS: Unlabored breathing. Clear to auscultation anteriorly. No wheeze or crackle. HEART: S1, S2, regular rate and rhythm. No loud murmur ABDOMEN: Soft, no tenderness , guarding or rigidity, no organomegaly EXTREMITIES: No edema of feet. SKIN: No rash, no masses palpable. Left axilla with swelling slightly tender no redness no drainage NEUROLOGICAL: The patient is awake, alert, oriented x3, mood and affect normal Results CBC & Chem 7: 12/16/18 21:02 12/16/18 21:02 Labs: Abnormal Lab Results - Last 24 Hours (Table) 12/16/18 12/16/18 12/16/18 Range/Units 21:02 21:02 21:06 WBC 15.2 H (3.8-10.6) k/uL Neutrophils # 11.0 H (1.3-7.7) k/uL ESR (0-20) mm/hr Chloride 109 H (98-107) mmol/L Carbon Dioxide 21 L (22-30) mmol/L BUN 18 H (7-17) mg/dL AST 88 H (14-36) U/L ALT 104 H (9-52) U/L C-Reactive Protein 166.2 H (<10.0) mg/L Albumin 3.1 L (3.5-5.0) g/dL Urine Protein Trace H (Negative) 12/16/18 Range/Units 22:34 WBC (3.8-10.6) k/uL Neutrophils # (1.3-7.7) k/uL ESR 49 H (0-20) mm/hr Chloride (98-107) mmol/L Carbon Dioxide (22-30) mmol/L BUN (7-17) mg/dL AST (14-36) U/L ALT (9-52) U/L C-Reactive Protein (<10.0) mg/L Albumin (3.5-5.0) g/dL Urine Protein (Negative) Microbiology - Last 24 Hours (Table) 12/16/18 21:02 Blood Culture Gram Stain - Preliminary Blood 12/16/18 21:02 Blood Culture - Final Blood 12/16/18 21:02 Genital Culture - Preliminary Vaginal Assessment and Plan Assessment: 1-patient admitted hospital with mid back pain in this patient who did have a history of IV drug use with a fever and elevated white count and now with evidence of presumptive MRSA bacteremia concern is high for possible thoracic spine discitis 2-left axillary area folliculitis likely MRSA related 3-patient with history of active IV drug use currently at rehab (1) Bacteremia due to methicillin resistant Staphylococcus aureus Current Visit: Yes Status: Acute Code(s): R78.81 - BACTEREMIA SNOMED Code(s): 76539635818184601 (2) Abscess of left axilla Current Visit: Yes Status: Acute Code(s): L02.412 - CUTANEOUS ABSCESS OF LEFT AXILLA SNOMED Code(s): 70620414 (3) Intractable back pain Current Visit: Yes Status: Acute Code(s): M54.9 - DORSALGIA, UNSPECIFIED SNOMED Code(s): 309784457 Plan: 1-blood cultures will be repeated to document clearance of bacteremia 2-vancomycin pharmacy to dose target of 15 and discontinue the cefepime 3-await MRI of the thoracic spine being ordered by orthopedics 4-patient will benefit from surgical drainage of the left axillary abscess We will follow-up on clinical condition and culture to further adjust medication if needed Thank you for this consultation will follow this patient along with you Time with Patient: Greater than 30
--- NOTE | 2018-12-18 00:47 | PN ---
PROGRESS NOTE 38-year-old white female, back pain, left axillary mass. Continue with broad-spectrum antibiotics. CARDIOVASCULAR: S1, S2. Lungs clear. GI soft. ASSESSMENT: 1. Back pain. 2. Left axilla adenitis. 3. Polysubstance abuse. Please see further orders. MMODL / IJN: [id number] /
[2018-12-18] MEDS: VANCOMYCIN 1,000 MG in SODIUM CHLORIDE 0.9% 250 ML IVPB SCH ×2 (01:44→12:33)
[2018-12-18] MEDS: KETOROLAC 30 MG/ML 1 ML VIAL IVP SCH ×4 (02:51→20:00)
[2018-12-18] MEDS: SODIUM CHLORIDE 0.9% 1,000 ML IV SCH ×2 (05:53→15:15)
[2018-12-18] MEDS: ACETAMINOPHEN TAB 325 MG TAB PO PRN ×4 (07:00→23:25)
[2018-12-18 09:39] LABS: Basophils % (A) 0 %; Eosinophils # (A) 0.1 k/uL (0-0.7); Eosinophils % (A) 1 %; HCT 36.2 % (34.0-46.0); HGB 11.3 gm/dL (11.4-16.0); Hypochromasia Slight; Lymphocytes # (A) 2.7 k/uL (1.0-4.8); Lymphocytes % (A) 15 %; MCH 27.3 pg (25.0-35.0); MCHC 31.1 g/dL (31.0-37.0); MCV 87.7 fL (80.0-100.0); Mean Platelet Volume 7.5; Monocytes # (A) 0.8 k/uL (0-1.0); Monocytes % (A) 4 %; Neutrophils # (A) 13.9 k/uL (1.3-7.7); Neutrophils % (A) 78 %; Platelet Count 293 k/uL (150-450); RBC 4.13 m/uL (3.80-5.40); RDW 15.1 % (11.5-15.5); WBC 17.8 k/uL (3.8-10.6)
--- NOTE | 2018-12-18 11:37 | MR ---
EXAMINATION TYPE: MR aníbal/lsdavian wo/w con DATE OF EXAM: 12/18/2018 COMPARISON: CT thoracic spine 12/16/2018 HISTORY: Pain R/O Epidural Abscess TECHNIQUE: Multiplanar, multisequence images of the lumbar and thoracic spine is performed without and with IV c ontrast, utilizing 6 mL intravenous Gadavist FINDINGS: Thoracic spine: Sagittal images of the thoracic spine show vertebral body heights and alignment to be stable compared to thoracic spine CT, superior endplate deformities compatible with Schmorl's nodes present at T8, T9, T10 and T11. The intervertebral discs show mild reduction in height at T7-8, T8-9, T9-10, loss of disc signal, T2 intense signal present about the Schmorl's node at T8, T9, T10 and T1 1 suggesting some edema, there is enhancement following contrast administration suggesting some degre e of active process. Mild anterior wedging T11 without retropulsion. The conus medullaris is normal i n position and signal. The bone marrow signal intensity is within normal limits. Axial images show no focal disc disease at any thoracic level. There is no spinal canal stenosis, ne ural foraminal narrowing, or evidence of nerve root compromise. Small basilar effusions are present. Some mild facet arthropathy present in the lower thoracic spine. Incidental pulmonary nodules as noted on CT are indeterminate IMPRESSION: Multilevel Schmorl's node formation as noted on CT with some probable local edema, mild a nterior wedging T11 as noted on CT. Minimal pleural effusions. No epidural abscess evident. Lumbar spine MRI: Lumbar vertebral bodies show preserved height and alignment. There is loss of disc height and signal at L3-4 compatible disc desiccation and degenerative disc disease. Minimal posterio r broad-based disc bulge at this level causes only slight anterior mass effect on the thecal sac Ther e is no evident spinal stenosis, foraminal encroachment, or or other evidence sizable disc herniation . Conus is at L1 and shows an unremarkable appearance. No abnormal enhancement following contrast adm inistration. Slight spinal curvature is noted. IMPRESSION: Mild degenerative disc disease.
--- NOTE | 2018-12-18 13:02 | P.PN ---
Progress Note - Text Progress Note Date: 12/18/18 Patient is a pleasant 38-year-old female who is seeing exam of the bedside for follow-up evaluation this morning and again this afternoon for intractable thoracic back pain and right lower extremity radiculopathy. Since being seen and examined this morning patient has undergone MR imaging of the lumbar spine and thoracic spine with and without contrast. Imaging has been reviewed by myself and Dr. Isaiah Razo. She feels slightly better this morning but has not had significant change in her pain overall. Patient has been residing at [facility] due to previous heroin abuse. Patient states she had been doing well at rehabilitation and only had 2 days left prior to discharge. Over the past 3-4 days she has been experiencing severe midthoracic back pain. She also has pain that radiates down the right posterior lateral thigh and over the right anterior acevedo. She denies any specific injuries. She presented to the emergency department for further evaluation. She denies specific lower extremity weakness bilaterally. She does have difficulty standing on her right lower extremity due to pain. She is able to stand on toes and heels on the right lower extremity without significant difficulty. Patient denies any left lower extremity radiculopathy. Patient has evidence of multiple skin/scar lopez on the upper and lower extremities. Patient states they are from living outside for an extended period of time. She states at the time of discharge from [facility] she is unsure where her living situation will be. She has been able to contact [place] today and they're planning to gather her belongings for her. She states they were trying to set her up with a three-quarter house but is unsure if that'll be approved. Patient also has a history of axillary abscess which dates have been treated with medication and has not been drained. She is eating and voiding without difficulty. Physical exam: Patient is awake, alert, and oriented 3 Vital signs stable Good chest excursion with deep inspiration and expiration Examination of thoracic and lumbar spine reveals skin is intact with no abrasions, ulcerations, or bruises; no erythema, purulence or signs of infection Significant pain with palpation along the mid thoracic spine Evidence of slight protrusion over the paraspinal muscles on the left at the mid to lower thoracic spine without evidence of erythema, bruising, or obvious sign of infection No significant pain with palpation over the lumbar spine Evidence of multiple tattoos along the midline of the thoracic and lumbar spine; multiple tattoos over the bilateral upper extremities and lower extremities Evidence of multiple skin lopez/scars over the bilateral upper extremity and lower extremities Dorsiflexion, plantarflexion, and extensor hallucis longus positive sustained bilaterally Patient is able to stand on toe and heel bilaterally Lower extremity strength 5/5 bilaterally Patellar reflex 1+ bilaterally No lower extremity hyperreflexia bilaterally Straight leg test negative bilateral lower extremities No signs or symptoms of DVT; no calf pain Neurovascularly intact Pertinent studies: MRI of the thoracic taken with and without contrast on 12/10/2018: Schmorl's nodes present at T8, T9, T10, T11; T7-8, T8-9, and T9-10 mild degenerative disc disease; T2 intense signal present about the shoulder as well as at T8, T9, T10, and T11 suggesting of some edema while enhancement following contrast administration suggests some degree of active process with mild anterior wedging at T11; bone marrow signal intensity within normal limits; no evidence of spinal canal stenosis, neural foraminal stenosis, or evidence of nerve root compromise; mild facet arthropathy lower thoracic spine; incidental pulmonary nodules as noted on CT indeterminant; no evidence of epidural abscess; minimal pleural effusion MRI of the lumbar spine taken with without contrast on 12/18/2018: Overall alignment appears be adequately maintained; L3-4 degenerative disc disease and disc desiccation with minimal posterior broad-based bulging; no evidence of significant spinal canal stenosis or neural foraminal stenosis; no evidence of vertebral body compression fracture; no abnormal enhancement following contrast administration; conus at L1 and shows unremarkable appearance CT of thoracic spine taken on 12/16/2018: Multiple endplate Schmorl's node formation with node formation superior endplate of T11 with vertebral body height loss in which subtle compression fracture deformity is difficult to exclude; no evidence of spinal canal stenosis; multiple nonspecific pulmonary nodules which may be infectious, inflammatory, or neoplastic Assessment: Intractable thoracic back pain Right lower extremity radiculopathy Multiple thoracic endplate Schmorl's node formation at T8, T9, T10, T11 Acute T11 compression fracture deformity with mild wedging Mild thoracic degenerative disc disease at T7-8, T8-9, T9-10 Mild thoracic facet arthropathy lower thoracic spine L3-4 degenerative disc disease and disc desiccation with minimal posterior broad-based disc bulge Multiple nonspecific pulmonary nodule History of heroin abuse Plan: 1. Patient thoracic MRI and lumbar MRI with and without contrast have been reviewed by myself and Dr. Isaiah Razo. After further examination the patient, further discussion with the patient, and review of imaging, we are currently planning to continue with conservative treatment at this time. Reviewing of imaging does show evidence of a compression fracture deformity and slight wedging at T11 which correlates with her thoracic back pain. No obvious sign of infection has been found at her thoracic or lumbar spine. Reviewing of lumbar imaging does not show any significant findings. At this time we will plan for bracing. A prescription has been written and provided to case management for a Spinomed TLSO brace. Once this brace is delivered and fitted appropriately, patient should wear this brace while sitting upright at greater than 45, during increase activities, and early ambulation. Brace does not have to be worn while lying in bed or while bathing. Following fitting of this brace, patient will be cleared for discharge from an orthopedic spine standpoint. Following discharge, patient may follow-up with Сергей Del Real PA-C or Dr. Isaiah Razo at [facility] in approximately 2-3 weeks for further evaluation. Patient feels this is a good plan of care. We discussed she should continue conservative treatment in regards to her right lower extremity. Currently planned for consultation with pain management she does not have evidence of neural foraminal stenosis or nerve impingement. Patient states she would like to continue conservative treatment for her right lower extremity. Patient has been discussed in detail with Dr. Isaiah Razo and he agrees with this plan. 2. She may continue with medication as prescribed for pain control including Toradol. Patient is unable to receive narcotic medications due to her previous history of heroin abuse. 3. Patient will continue to be seen and examined by medicine, infectious disease and pulmonology for her other medical diagnoses
--- NOTE | 2018-12-18 14:12 | P.PN ---
Subjective Progress Note Date: 12/18/18 Principal diagnosis: Multiple bilateral pulmonary nodules likely septic nodules, COPD, discitis probably T11, MRSA bacteremia, IV drug abuse, 12/18/2018, patient seen and evaluated examined during the rounds she is doing well however the blood cultures are positive for gram-positive cocci likely MRSA, ID services following spine surgery is following as well, patient has a multiple nodules in left axilla for which surgical consult has been requested, she is complaining of 2 new nodules developed in the sternal area and in cervical area there appeared to be a metastatic small abscess, 38-year-old female who was seen evaluated examined in the floor this patient is transferred from [place] where she was admitted for drug rehab, she has about 6 year history of the IV heroin use she presented and evaluated in emergency department from mid thoracic back pain that radiates down her back and up into her neck. Patient states it is radiating down her right leg as well. Patient states this pain started 3 days ago. Patient is also reporting multiple abscesses to the left axillary region. Patient states she did recently have these incised and drained and was started on Bactrim. States she has taken 2 full days of Bactrim at this point. States she has been having low-grade fevers around 99.5F as well as chills. Patient states she has been nauseated. Patient is also reporting white vaginal discharge. States that she has had Trichomonas in the past and feels this is the same infection. She denies any pelvic pain, hematuria, dysuria, urinary urgency, urinary frequency. Patient is currently being treated at [place] rehab facility for intravenous drug use with heroin. Patient denies any recent rash, shortness breath, chest pain, abdominal pain, diarrhea, constipation, back pain, numbness, tingling, dizziness, weakness, headache, visual changes, or any other complaints. 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 and smoking Objective - Vital Signs Vital signs: Vital Signs Temp 98.7 F 12/18/18 06:00 Pulse 73 12/18/18 06:00 Resp 18 12/18/18 06:00 BP 105/67 12/18/18 06:00 Pulse Ox 99 12/18/18 06:00 Intake & Output 12/17/18 12/18/1819 18:59 06:59 18:59 Intake Total 480 950 240 Balance 480 950 240 Intake: Oral 480 950 240 Other: # Voids 2 2 2 - Exam - Constitutional General appearance: average body habitus, cooperative, disheveled, mild distress - EENT Eyes: anicteric sclerae, EOMI, PERRLA, poor dentition, normal appearance ENT: normal oropharynx Ears: bilateral: normal - Neck Neck: normal ROM Carotids: bilateral: upstroke normal, bruit absent Thyroid: bilateral: normal size - Respiratory Respiratory: bilateral: CTA - Cardiovascular Rhythm: irregularly irregular Heart sounds: normal: S1, S2 - Neurologic Neurologic: CNII-XII intact - Musculoskeletal Musculoskeletal: gait normal, generalized weakness, strength equal bilaterally, noted irregular cutaneous superficial abscess formation left axillary area as well as sternal area and posterior cervical area which are a small side - Psychiatric Psychiatric: A&O x's 3, appropriate affect, intact judgment & insight Midthoracic vertebral tenderness is present along with left some paraspinal swelling - Labs CBC & Chem 7: 12/18/18 09:05 12/18/18 09:05 Labs: Abnormal Lab Results - Last 24 Hours (Table) 12/18/18 Range/Units 09:05 WBC 17.8 H (3.8-10.6) k/uL Hgb 11.3 L (11.4-16.0) gm/dL Neutrophils # 13.9 H (1.3-7.7) k/uL Microbiology - Last 24 Hours (Table) 12/17/18 11:38 Blood Culture Gram Stain - Preliminary Blood Blood Culture - Preliminary Presumptive MRSA 12/17/18 11:32 Blood Culture Gram Stain - Preliminary Blood Blood Culture - Preliminary Presumptive MRSA 12/17/18 11:32 Blood Culture - Final Blood 12/17/18 11:38 Blood Culture - Final Blood 12/16/18 21:02 Blood Culture Gram Stain - Preliminary Blood Blood Culture - Preliminary Presumptive MRSA 12/16/18 21:02 Blood Culture - Final Blood 12/16/18 21:02 Genital Culture - Preliminary Vaginal Assessment and Plan Assessment: Left axillary abscess, sternal area and posterior cervical area abscess MRSA bacteremia persistent Multiple bilateral pulmonary nodules may be septic nodules COPD T11 vertebral body height loss with endplate, MRI is pending Obtain blood culture Echocardiogram to rule out endocarditis Plan: Surgical consult As above Time with Patient: Greater than 30
--- NOTE | 2018-12-18 14:43 | P.GSCN ---
History of Present Illness Consult date: 12/18/18 Reason for Consult: left axillary abscess Requesting physician: Clifton Villeda History of present illness: CHIEF COMPLAINT: left axillay abscess HISTORY OF PRESENT ILLNESS: 38-year-old female admitted to the hospital with back pain. General surgery was consulted regarding left axillary abscess. Patient has been at [facility] since December 06. She reports having an abscess to her left axillary region prior to admission to [facility]. She states she had it drained at a facility in [place]. She reports the area initially got better but has started to get worse lately. She reports she was started on Bactrim last week. She denies drainage. She reports increased tenderness to left axilla. She also reports two abscess to right sternal/breast region and one on the back of her head. WBC 17.8. Blood cultures are positive for presumptive MRSA. PAST MEDICAL HISTORY: See list. PAST SURGICAL HISTORY: See list. SOCIAL HISTORY: No illicit drug use. REVIEW OF SYSTEMS: CONSTITUTIONAL: Denies fever or chills. HEENT: Denies blurred vision, vision changes, or eye pain. Denies hemoptysis CARDIOVASCULAR: Denies chest pain or pressure. RESPIRATORY: No shortness of breath. GASTROINTESTINAL: Denies nausea or vomiting. HEMATOLOGIC: Denies bleeding disorders. GENITOURINARY: Denies any blood in urine. SKIN: Denies pruitis. Denies rash. Reports abscess to left axilla. PHYSICAL EXAM: VITAL SIGNS: Reviewed. GENERAL: Well-developed in no acute distress. HEENT: No sclera icterus. Extraocular movements grossly intact. Moist buccal mucosa. Head is atraumatic, normocephalic. ABDOMEN: Soft. Nondistended. Nontender. NEUROLOGIC: Alert and oriented. Cranial nerves II through XII grossly intact. SKIN: Abscess to left axilla with smaller surrounding nodules with erythema noted. no drainage. Tenderness noted. Small nodules also present to right breast/sternal region and posterior scalp. ASSESSMENT: 1. Left axillary abscess with additional possible abscess to right sternum/breast and posterior occipital region PLAN: Case discussed with Dr. Gallardo. Likely will require I&D in near future. Continue antibiotics at this time. Nurse practitioner note has been reviewed by physician. Signing provider agrees with the documented findings, assessment, and plan of care. 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 Past Anesthesia/Blood Transfusion Reactions: No Reported Reaction Past Psychological History: Anxiety, Depression Smoking Status: Current some day smoker Past Alcohol Use History: None Reported Past Drug Use History: Heroin, Opiates - Past Family History Mother Family Medical History: Hypertension Medications and Allergies Home Medications Medication Instructions Recorded Confirmed Type Multivitamins, Thera [Multivitamin 1 tab PO DAILY 12/11/17 12/17/18 History (formulary)] Acetaminophen Tab [Tylenol Tab] 650 mg PO Q6H PRN 12/17/18 12/17/18 History Ibuprofen [Motrin Ib] 200 mg PO Q4H PRN 12/17/18 12/17/18 History Allergies Allergy/AdvReac Type Severity Reaction Status Date / Time No Known Allergies Allergy Verified 12/17/18 08:38 Surgical - Exam Vital Signs Temp Pulse Resp BP Pulse Ox 98.5 F 89 18 101/62 98 12/16/18 18:57 12/16/18 18:57 12/16/18 18:57 12/16/18 18:57 12/16/18 18:57 Results - Labs 12/18/18 09:05 12/18/18 09:05 Abnormal Lab Results - Last 24 Hours (Table) 12/18/18 Range/Units 09:05 WBC 17.8 H (3.8-10.6) k/uL Hgb 11.3 L (11.4-16.0) gm/dL Neutrophils # 13.9 H (1.3-7.7) k/uL Microbiology - Last 24 Hours (Table) 12/17/18 11:38 Blood Culture Gram Stain - Preliminary Blood Blood Culture - Preliminary Presumptive MRSA 12/17/18 11:32 Blood Culture Gram Stain - Preliminary Blood Blood Culture - Preliminary Presumptive MRSA 12/17/18 11:32 Blood Culture - Final Blood 12/17/18 11:38 Blood Culture - Final Blood 12/16/18 21:02 Blood Culture Gram Stain - Preliminary Blood Blood Culture - Preliminary Presumptive MRSA 12/16/18 21:02 Blood Culture - Final Blood Diabetes panel 12/18/18 Range/Units 09:05 Creatinine 0.62 (0.52-1.04) mg/dL Pituitary panel 12/18/18 Range/Units 09:05 Creatinine 0.62 (0.52-1.04) mg/dL Adrenal panel 12/18/18 Range/Units 09:05 Creatinine 0.62 (0.52-1.04) mg/dL
[2018-12-18 16:18] LABS: N. gonorrhoeae,PCR Negative (Neg,Equiv); Neisseria Source Cervix
[2018-12-18 16:19] LABS: C. trachomatis,PCR Negative (Neg,Equiv); Chlamydia trachomatis Source Cervix
[2018-12-18] MEDS: hydrOXYzine HCL 25 MG TAB PO PRN ×2 (17:44→23:25)
--- NOTE | 2018-12-18 19:06 | PN ---
PROGRESS NOTE DATE OF SERVICE: 12/18/2018 REASON FOR FOLLOWUP: MRSA bacteremia, left axillary abscess and concern about diskitis. INTERVAL HISTORY: The patient is currently afebrile. Patient is still complaining of significant pain to the lower back area. No chest pain, shortness of breath or cough. No abdominal pain or any diarrhea. PHYSICAL EXAMINATION: Blood pressure 121/76, pulse 86, temperature 98.4. She is 96% on room air. General description is a middle-aged female lying in bed in no distress. RESPIRATORY SYSTEM: Unlabored breathing. Clear to auscultation anteriorly. HEART: S1, S2. Regular rate and rhythm. ABDOMEN: Soft. No tenderness. LABS: Hemoglobin 11.3, white count 17.8. Sedimentation rate is 49, CRP 166.2. Blood culture with MRSA. DIAGNOSTIC IMPRESSION AND PLAN: Patient with methicillin-resistant Staphylococcus aeruginosa bacteremia with back pain, concern about possible diskitis. However, the patient did have MRI of the thoracic and lumbar spine with no evidence of any diskitis. She did have left axillary possible abscess, possible source of this infection; however, in view of the persistent bacteremia was consulted to rule out. Patient would benefit from a YVETTE. Blood culture will be repeated today to document clearance of bacteremia. Vancomycin, Pharmacy to dose, while watching her kidney function closely. Continue with supportive care. MMODL / IJN: [id number] /
[2018-12-19] MEDS ORDERED: VANCOMYCIN TROUGH DUE 1 EACH MISC MISCELLANE ONE
[2018-12-19] MEDS: KETOROLAC 30 MG/ML 1 ML VIAL IVP SCH ×4 (03:21→20:12)
[2018-12-19] MEDS: VANCOMYCIN 1,000 MG in SODIUM CHLORIDE 0.9% 250 ML IVPB SCH ×2 (03:29→03:51)
[2018-12-19] MEDS: SODIUM CHLORIDE 0.9% 1,000 ML IV SCH ×3 (04:07→20:13)
[2018-12-19] MEDS: hydrOXYzine HCL 25 MG TAB PO PRN ×4 (04:49→21:49)
[2018-12-19] MEDS: ACETAMINOPHEN TAB 325 MG TAB PO PRN ×3 (04:49→20:13)
[2018-12-19] MEDS: VANCOMYCIN 750 MG in SODIUM CHLORIDE 0.9% 250 ML IVPB SCH ×2 (11:00→20:12)
--- NOTE | 2018-12-19 12:09 | P.PN ---
Progress Note - Text Progress Note Date: 12/19/18 Patient is a pleasant 38-year-old female who is seeing exam of the bedside for follow-up evaluation for intractable thoracic back pain and right lower extremity radiculopathy. Since being seen and examined yesterday a Spinomed TLSO brace has been delivered and fitted appropriately. She has been wearing this brace during ambulation and increased symptoms. She states her thoracic back pain has been better controlled with this brace intact. She continues to deny specific lower extremity weakness bilaterally. She does continue to have some right lower extremity radiculopathy with pain that radiates down the right posterior lateral thigh and over the right anterior acevedo. She denies any specific left lower extremity radiculopathy. She is not experiencing any low back pain. Overall she has improved as compared to yesterday. Patient has evidence of multiple skin/scar lopez on the upper and lower extremities. Patient states they are from living outside for an extended period of time. She states at the time of discharge from [facility] she is unsure where her living situation will be. She has been able to contact [employer] today and they're planning to gather her belongings for her. She states they were trying to set her up with a three-quarter house but is unsure if that'll be approved. Patient also has a history of axillary abscess which dates have been treated with medication and has not been drained. He is currently being evaluated for the possibility of drainage of this abscess. She is eating and voiding without difficulty. Physical exam: Patient is awake, alert, and oriented 3 Vital signs stable Good chest excursion with deep inspiration and expiration Examination of thoracic and lumbar spine reveals skin is intact with no abrasions, ulcerations, or bruises; no erythema, purulence or signs of infection Mild pain pain with palpation along the mid thoracic spine Evidence of slight protrusion over the paraspinal muscles on the left at the mid to lower thoracic spine without evidence of erythema, bruising, or obvious sign of infection No significant pain with palpation over the lumbar spine Evidence of multiple tattoos along the midline of the thoracic and lumbar spine; multiple tattoos over the bilateral upper extremities and lower extremities Evidence of multiple skin lopez/scars over the bilateral upper extremity and lower extremities Dorsiflexion, plantarflexion, and extensor hallucis longus positive sustained bilaterally Patient is able to stand on toe and heel bilaterally Lower extremity strength 5/5 bilaterally Patellar reflex 1+ bilaterally No lower extremity hyperreflexia bilaterally Straight leg test negative bilateral lower extremities No signs or symptoms of DVT; no calf pain Neurovascularly intact Pertinent studies: MRI of the thoracic taken with and without contrast on 12/10/2018: Schmorl's nodes present at T8, T9, T10, T11; T7-8, T8-9, and T9-10 mild degenerative disc disease; T2 intense signal present about the shoulder as well as at T8, T9, T10, and T11 suggesting of some edema while enhancement following contrast administration suggests some degree of active process with mild anterior wedging at T11; bone marrow signal intensity within normal limits; no evidence of spinal canal stenosis, neural foraminal stenosis, or evidence of nerve root compromise; mild facet arthropathy lower thoracic spine; incidental pulmonary nodules as noted on CT indeterminant; no evidence of epidural abscess; minimal pleural effusion MRI of the lumbar spine taken with without contrast on 12/18/2018: Overall alignment appears be adequately maintained; L3-4 degenerative disc disease and disc desiccation with minimal posterior broad-based bulging; no evidence of significant spinal canal stenosis or neural foraminal stenosis; no evidence of vertebral body compression fracture; no abnormal enhancement following contrast administration; conus at L1 and shows unremarkable appearance CT of thoracic spine taken on 12/16/2018: Multiple endplate Schmorl's node formation with node formation superior endplate of T11 with vertebral body height loss in which subtle compression fracture deformity is difficult to exclude; no evidence of spinal canal stenosis; multiple nonspecific pulmonary nodules which may be infectious, inflammatory, or neoplastic Assessment: Intractable thoracic back pain Right lower extremity radiculopathy Multiple thoracic endplate Schmorl's node formation at T8, T9, T10, T11 Acute T11 compression fracture deformity with mild wedging Mild thoracic degenerative disc disease at T7-8, T8-9, T9-10 Mild thoracic facet arthropathy lower thoracic spine L3-4 degenerative disc disease and disc desiccation with minimal posterior broad-based disc bulge Multiple nonspecific pulmonary nodule History of heroin abuse Plan: 1. We'll continue conservative treatment at this time regards to her thoracic and lumbar spines. Patient thoracic MRI and lumbar MRI with and without contrast have been reviewed by myself and Dr. Isaiah Razo. After further examination the patient, further discussion with the patient, and review of imaging, we are currently planning to continue with conservative treatment at this time. Reviewing of imaging does show evidence of a compression fracture deformity and slight wedging at T11 which correlates with her thoracic back pain. No obvious sign of infection has been found at her thoracic or lumbar spine. Reviewing of lumbar imaging does not show any significant findings. Since being seen and examined yesterday a Spinomed TLSO brace has been delivered and fitted appropriately. Patient should continue to wear this brace while sitting upright at greater than 45, during increase activities, and early ambulation. Brace does not have to be worn while lying in bed or while bathing. Patient is now clear for discharge from an orthopedic spine standpoint. Following discharge, patient may follow-up with Сергей Del Real PA-C or Dr. Isaiah Razo at [facility] in approximately 2-3 weeks for further evaluation. Patient feels this is a good plan of care. We discussed she should continue conservative treatment in regards to her right lower extremity. Currently planned for consultation with pain management she does not have evidence of neural foraminal stenosis or nerve impingement. Patient states she would like to continue conservative treatment for her right lower extremity. Patient has been discussed in detail with Dr. Isaiah Razo and he agrees with this plan. 2. She may continue with medication as prescribed for pain control including Toradol. Patient is unable to receive narcotic medications due to her previous history of heroin abuse. 3. Patient will continue to be seen and examined by medicine, infectious disease and pulmonology for her other medical diagnoses
--- NOTE | 2018-12-19 13:47 | P.PN ---
Subjective Progress Note Date: 12/19/18 CHIEF COMPLAINT: left axillary abscess HISTORY OF PRESENT ILLNESS: Patient examined at the bedside with Dr. Gallardo. Patient reports tenderness to left axillary region. Blood cultures positive for MRSA. Infectious disease is following. PHYSICAL EXAM: VITAL SIGNS: Reviewed. GENERAL: Well-developed in no acute distress. HEENT: No sclera icterus. Extraocular movements grossly intact. Moist buccal mucosa. Head is atraumatic, normocephalic. ABDOMEN: Soft. Nondistended. Nontender. NEUROLOGIC: Alert and oriented. Cranial nerves II through XII grossly intact. SKIN: Abscess to left axilla with smaller surrounding nodules with erythema noted. no drainage. Tenderness noted. Small nodules also present to right breast/sternal region and posterior scalp. ASSESSMENT: 1. Possible left axillary abscess PLAN: US left axilla to evaluate mass. Pending US results, patient will tentatively be scheduled for I&D tomorrow with Dr. Gallardo Nurse practitioner note has been reviewed by physician. Signing provider agrees with the documented findings, assessment, and plan of care. Objective - Vital Signs Vital signs: Vital Signs Temp 97.4 F L 12/19/18 05:46 Pulse 67 12/19/18 05:46 Resp 18 12/19/18 05:46 BP 106/67 12/19/18 05:46 Pulse Ox 100 12/19/18 05:46 Intake & Output 12/18/18 12/19/18 12/19/18 18:59 06:59 18:59 Intake Total 240 950 Balance 240 950 Intake: Oral 240 950 Other: Voiding Method Toilet # Voids 2 2 3 # Bowel Movements 2 - Labs CBC & Chem 7: 12/18/18 09:05 12/18/18 09:05 Labs: Microbiology - Last 24 Hours (Table) 12/18/18 09:05 Blood Culture Gram Stain - Preliminary Blood 12/17/18 11:38 Blood Culture Gram Stain - Final Blood Blood Culture - Final Methicillin resist S. aureus 12/17/18 11:32 Blood Culture Gram Stain - Final Blood Blood Culture - Final Methicillin resist S. aureus 12/18/18 09:05 Blood Culture - Final Blood 12/16/18 21:02 Blood Culture Gram Stain - Final Blood Blood Culture - Final Methicillin resist S. aureus
--- NOTE | 2018-12-19 14:26 | PN ---
PROGRESS NOTE DATE OF SERVICE: 12/18/2018 SUBJECTIVE: A 38-year-old white female with back pain, left axillary adenitis. Awaiting MRI of her back and Neurosurgery to clear her and Infectious Disease to clear her for possible septic emboli. Remains on vancomycin treatments. She wants to sign out AMA today and come back to the hospital due to getting some pin at [place]. Her white count is 17.8. CARDIOVASCULAR: S1-S2. LUNGS: Clear. GI: Soft. INTEGUMENT: Shows left axillary, adenitis and swelling. ASSESSMENT: She has methicillin-resistant Staphylococcus aureus with back pain, concern for possible diskitis. MRI of the thoracic and lumbar spine will be done. Possible PICC line placement will be done due to bacteremia and possible from a tendency of esophageal echogram. MMODL / IJN: [id number] /
--- NOTE | 2018-12-19 15:15 | US ---
EXAMINATION TYPE: US axilla LT DATE OF EXAM: 12/19/2018 COMPARISON: NONE CLINICAL HISTORY: poss abscess. Patient has two separate areas of redness and swelling. At the largest area is a hypoechoic well circumscribed area with some peripheral vascularity measurin g 3.8 x 1.1 x 2.9cm. At the 2nd area of swelling are two similar appearing areas measuring 1.) 1.9 x 0.7 x 1.7cm 2.) 2.1 x 0.7 x1.8cm IMPRESSION: 1. These ultrasound findings appear more suspicious for abnormal adenopathy than abscess.
[2018-12-19] MEDS: LOPERAMIDE 2 MG CAP PO PRN (18:01)
[2018-12-19] MEDS: diphenhydrAMINE 25 MG CAP PO PRN (18:01)
--- NOTE | 2018-12-19 20:17 | PN ---
PROGRESS NOTE DATE OF SERVICE: 12/19/2018 REASON FOR FOLLOWUP: 1. MRSA bacteremia. 2. Left axillary itis. INTERVAL HISTORY: The patient is currently afebrile. The patient has been breathing comfortably. No chest pain or shortness of breath or cough. No abdominal pain or any diarrhea. PHYSICAL EXAMINATION: Blood pressure 122/76, pulse of 62, temperature 98.3. She is 96% on room air. General description is a middle-aged female up in the room in no distress. RESPIRATORY SYSTEM: Unlabored breathing. Clear to auscultation anteriorly. HEART: S1, S2. Regular rate and rhythm. ABDOMEN: Soft. No tenderness. LABS: Hemoglobin is 11.3, white count 17.8. 12/18 has been negative and has been repeated this morning. DIAGNOSTIC IMPRESSION AND PLAN: Patient with methicillin-resistant Staphylococcus aeruginosa bacteremia that has been persistent since 12/16 in this patient who does have a history of IV drug use and came with back pain. MRI of the thoracic lumbar spine was negative for any diskitis. Still concern about possible endovascular infection. Recommend getting a YVETTE and continue with vancomycin, Pharmacy to dose, while watching her clinical course and culture closely. Continue with supportive care. MMODL / IJN: [id number] /
[2018-12-20] MEDS: KETOROLAC 30 MG/ML 1 ML VIAL IVP SCH ×4 (02:18→21:48)
[2018-12-20] MEDS: ACETAMINOPHEN TAB 325 MG TAB PO PRN ×3 (02:19→21:55)
[2018-12-20] MEDS: LOPERAMIDE 2 MG CAP PO PRN ×3 (02:25→18:55)
[2018-12-20] MEDS: diphenhydrAMINE 25 MG CAP PO PRN ×2 (02:25→08:32)
[2018-12-20] MEDS: VANCOMYCIN 750 MG in SODIUM CHLORIDE 0.9% 250 ML IVPB SCH ×2 (03:15→11:58)
[2018-12-20] MEDS ORDERED: VANCOMYCIN TROUGH DUE 1 EACH MISC MISCELLANE ONE (11:00)
--- NOTE | 2018-12-20 11:12 | P.PN ---
Subjective Progress Note Date: 12/20/18 CHIEF COMPLAINT: left axillary abscess HISTORY OF PRESENT ILLNESS: Patient examined at the bedside. US completed yesterday findings more suspicious for abnormal adenopathy then abscess. Patient continues to report tenderness to left axilla. PHYSICAL EXAM: VITAL SIGNS: Reviewed. GENERAL: Well-developed in no acute distress. HEENT: No sclera icterus. Extraocular movements grossly intact. Moist buccal mucosa. Head is atraumatic, normocephalic. ABDOMEN: Soft. Nondistended. Nontender. NEUROLOGIC: Alert and oriented. Cranial nerves II through XII grossly intact. SKIN: Mass to left axilla with smaller surrounding nodules with erythema noted. no drainage. Tenderness noted. Small nodules also present to right breast/sternal region and posterior scalp. ASSESSMENT: 1. Left axillary abscess, ruled out, suspect adenopathy per US PLAN: Continue diet Continue antibiotics I&D cancelled for today secondary to US results No surgical intervention recommended Nurse practitioner note has been reviewed by physician. Signing provider agrees with the documented findings, assessment, and plan of care. Objective - Vital Signs Vital signs: Vital Signs Temp 98.9 F 12/20/18 05:49 Pulse 88 12/20/18 05:49 Resp 14 12/20/18 05:49 BP 119/79 12/20/18 05:49 Pulse Ox 98 12/20/18 05:49 Intake & Output 12/19/18 12/20/18 12/20/18 18:59 06:59 18:59 Other: Voiding Method Toilet Toilet # Voids 3 2 # Bowel Movements 2 - Labs CBC & Chem 7: 12/18/18 09:05 12/18/18 09:05 Labs: Microbiology - Last 24 Hours (Table) 12/19/18 10:39 Blood Culture - Final Blood 12/18/18 09:05 Blood Culture Gram Stain - Preliminary Blood Blood Culture - Preliminary Presumptive MRSA 12/16/18 21:02 Genital Culture - Preliminary Vaginal Gardnerella vaginalis 12/17/18 11:38 Blood Culture Gram Stain - Final Blood Blood Culture - Final Methicillin resist S. aureus 12/17/18 11:32 Blood Culture Gram Stain - Final Blood Blood Culture - Final Methicillin resist S. aureus
[2018-12-20 11:16] LABS: Basophils % (A) 0 %; Eosinophils # (A) 0.1 k/uL (0-0.7); Eosinophils % (A) 1 %; HGB 11.2 gm/dL (11.4-16.0); Lymphocytes # (A) 2.7 k/uL (1.0-4.8); Lymphocytes % (A) 17 %; MCH 27.5 pg (25.0-35.0); MCHC 31.9 g/dL (31.0-37.0); MCV 86.2 fL (80.0-100.0); Mean Platelet Volume 7.2; Monocytes # (A) 0.6 k/uL (0-1.0); Monocytes % (A) 4 %; Neutrophils # (A) 11.8 k/uL (1.3-7.7); Neutrophils % (A) 76 %; Platelet Count 321 k/uL (150-450); RBC 4.06 m/uL (3.80-5.40); RDW 15.1 % (11.5-15.5); WBC 15.5 k/uL (3.8-10.6)
--- NOTE | 2018-12-20 12:12 | PN ---
PROGRESS NOTE SUBJECTIVE: This 38-year-old white female with possible septic emboli awaiting Dr. Becerra's recommendations as well as Pulmonary recommendations. She has MRSA bacteremia and left axillary adenitis. She has MRSA bacteremia persistent since 12/16 with a history IV drug abuse. MRI of thoracic spine was negative for any discitis. Awaiting for Cardiology to do a YVETTE. Continue with vancomycin. CARDIOVASCULAR: S1, S2. LUNGS: Transmitted upper airway sounds. HEMATOLOGY: Negative Homans. PSYCH: Fair mood and affect. ASSESSMENT: As above. Ultrasound of the left axilla will be done today and await for Cardiology recommendations after YVETTE. MMODL / IJN: [id number] /
--- NOTE | 2018-12-20 12:20 | P.CRDCN ---
History of Present Illness History of present illness: This is a pleasant 38-year-old female history of chronic nicotine dependence, IV heroin use and hepatitis C. She is currently being treated for persistent MRSA bacteremia. We have been asked to perform a YVETTE. She underwent a transthoracic echocardiogram earlier in this admission on December 17 revealing preserved LV systolic function with ejection fraction 60-65% with no evidence of valvular heart disease or vegetation. Pericardium is normal. She is currently maintained on vancomycin. She is seen and examined resting comfortably sitting up in bed in no acute distress. She denies having any symptoms of chest discomfort, shortness of breath, dizziness, palpitations, nausea, vomiting or diaphoresis. She has never had a YVETTE or been diagnosed with endocarditis in the past. EKG on admission reveals sinus mechanism with no acute ST or T wave abnormalities noted. Laboratory data reviewed, WBC 15.5, hemoglobin 11.2, platelets 321, ESR 49, C- reactive protein 166.2, sodium 137, potassium 4.3, creatinine 0.91. She takes no daily cardiac medications. At the time of my exam: CONSTITUTIONAL: Denies fever. Denies chills. EYES: Denies blurred vision. Denies vision changes. Denies eye pain. EARS, NOSE, MOUTH & THROAT: Denies headache. Denies sore throat. Denies ear pain. CARDIOVASCULAR: Denies chest pain. Denies shortness of breath. Denies orthopnea. Denies PND. Denies palpitations. RESPIRATORY: Denies cough. GASTROINTESTINAL: Denies abdominal pain. Denies diarrhea. Denies constipation. Denies nausea. Denies vomiting. MUSCULOSKELETAL: Denies myalgias. INTEGUMENTARY: Denies pruitis. Denies rash. NEUROLOGIC: Denies numbness. Denies tingling. Denies weakness. PSYCHIATRIC: Denies anxiety. Denies depression. ENDOCRINE: Denies fatigue. Denies weight change. Denies polydipsia. Denies polyurina. GENITOURINARY: Denies burning, hematuria or urgency with micturation. HEMATOLOGIC: Denies history of anemia. Denies bleeding. Blood pressure 119/79 heart rate 88 afebrile maintaining oxygen saturation on room air GENERAL: This is a 38-year-old female in no apparent distress at the time of my examination. HEENT: Head is atraumatic, normocephalic. Pupils are equal, round. Sclerae anicteric. Conjunctivae are clear. Mucous membranes of the mouth are moist. Neck is supple. There is no jugular venous distention. No carotid bruit is heard. LUNGS: Clear to auscultation no wheezes, rales or rhonchi. No chest wall tenderness is noted on palpation or with deep breathing. HEART: Regular rate and rhythm without murmurs, rubs or gallops. S1 and S2 heard. ABDOMEN: Soft, nontender. Bowel sounds are heard. No organomegaly noted. EXTREMITIES: No evidence of peripheral edema and no calf tenderness noted. VASCULAR: Radial and dorsalis pedis pulses palpated, no evidence of clubbing. NEUROLOGIC: Patient is awake, alert and oriented x3. ASSESSMENT MRSA bacteremia History of IV drug use, has been clean since December 06 Hepatitis C Chronic nicotine dependence PLAN Perform YVETTE tomorrow. Procedure has been explained to the patient in great detail and questions have been answered appropriately. Case has been ordered for tomorrow with Dr. Gonzalez. Nothing by mouth after midnight. Thank you kindly for this consultation. Nurse Practitioner note has been reviewed, I agree with a documented findings and plan of care. Patient was seen and examined. Past Medical History Additional Past Medical History / Comment(s): hep c History of Any Multi-Drug Resistant Organisms: MRSA Date of last positivie culture/infection: 12/18/18 MDRO Source:: blood Past Surgical History: Orthopedic Surgery Additional Past Surgical History / Comment(s): Amputation of LT 3rd digit Past Anesthesia/Blood Transfusion Reactions: No Reported Reaction Past Psychological History: Anxiety, Depression Smoking Status: Current some day smoker Past Alcohol Use History: None Reported Past Drug Use History: Heroin, Opiates - Past Family History Mother Family Medical History: Hypertension Medications and Allergies Home Medications Medication Instructions Recorded Confirmed Type Multivitamins, Thera [Multivitamin 1 tab PO DAILY 12/11/17 12/17/18 History (formulary)] Acetaminophen Tab [Tylenol Tab] 650 mg PO Q6H PRN 12/17/18 12/17/18 History Ibuprofen [Motrin Ib] 200 mg PO Q4H PRN 12/17/18 12/17/18 History Allergies Allergy/AdvReac Type Severity Reaction Status Date / Time No Known Allergies Allergy Verified 12/17/18 08:38 Physical Exam Vitals: Vital Signs Temp Pulse Resp BP Pulse Ox 12/20/18 05:49 98.9 F 88 14 119/79 98 12/19/18 20:31 99.4 F 63 18 116/72 99 12/19/18 13:32 98.3 F 62 18 122/76 96 Intake and Output 12/19/18 12/20/18 12/20/18 22:59 06:59 14:59 Other: Voiding Method Toilet # Voids 1 2 Results 12/20/18 10:37 12/20/18 10:37 CBC 12/20/18 Range/Units 10:37 WBC 15.5 H (3.8-10.6) k/uL RBC 4.06 (3.80-5.40) m/uL Hgb 11.2 L (11.4-16.0) gm/dL Hct 35.0 (34.0-46.0) % Plt Count 321 (150-450) k/uL Comprehensive Metabolic Panel 12/20/18 Range/Units 10:37 Creatinine 0.62 (0.52-1.04) mg/dL Current Medications Generic Name Dose Route Start Last Admin Trade Name Freq PRN Reason Stop Dose Admin Acetaminophen 650 mg 12/16/18 23:56 12/20/18 02:19 Tylenol Tab PO 650 mg Q6HR PRN Administration Mild Pain or Fever > 100.5 Diphenhydramine HCl 50 mg 12/19/18 17:55 12/20/18 08:32 Benadryl PO 50 mg BID PRN Administration Itching Hydroxyzine HCl 25 mg 12/17/18 22:17 12/19/18 21:49 Atarax PO 25 mg QID PRN Administration Itching Sodium Chloride 1,000 mls @ 75 mls/hr 12/16/18 23:45 12/19/18 20:13 Saline 0.9% IV 75 mls/hr .[id number] NAIF Administration Vancomycin HCl 750 mg/ Sodium 250 mls @ 125 mls/hr 12/19/18 12:00 12/20/18 11:58 Chloride IVPB 125 mls/hr Q8H NAIF Administration Ketorolac Tromethamine 15 mg 12/17/18 09:00 12/20/18 08:23 Toradol IVP 12/21/18 09:01 15 mg Q6H NAIF Administration Loperamide HCl 2 mg 12/19/18 17:54 12/20/18 08:31 Imodium PO 2 mg QID PRN Administration Diarrhea Naloxone HCl 0.2 mg 12/16/18 23:56 Narcan IV Q2M PRN Opioid Reversal Intake and Output 12/19/18 12/20/18 12/20/18 22:59 06:59 14:59 Other: Voiding Method Toilet # Voids 1 2 12/20/18 10:37 12/20/18 10:37
--- NOTE | 2018-12-20 14:15 | P.PN ---
Subjective Progress Note Date: 12/20/18 Principal diagnosis: Multiple bilateral pulmonary nodules likely septic nodules, COPD, discitis probably T11, MRSA bacteremia, IV drug abuse, adenopathy likely reactive related to MRSA infection and MRSA bacteremia 12/20/2018 patient seen and evaluated examined care plan discussed with the staff, I and D has been canceled as ultrasound is positive for more of a lymphadenopathy rather than abscess, cardiology has been consulted for YVETTE as the preclinical probability of endocarditis very patient remains on IV vancomycin ID service following 12/18/2018, patient seen and evaluated examined during the rounds she is doing well however the blood cultures are positive for gram-positive cocci likely MRSA, ID services following spine surgery is following as well, patient has a m ultiple nodules in left axilla for which surgical consult has been requested, she is complaining of 2 new nodules developed in the sternal area and in cervical area there appeared to be a metastatic small abscess, 38-year-old female who was seen evaluated examined in the floor this patient is transferred from [place] where she was admitted for drug rehab, she has about 6 year history of the IV heroin use she presented and evaluated in emergency department from mid thoracic back pain that radiates down her back and up into her neck. Patient states it is radiating down her right leg as well. Patient states this pain started 3 days ago. Patient is also reporting multiple abscesses to the left axillary region. Patient states she did recently have these incised and drained and was started on Bactrim. States she has taken 2 full days of Bactrim at this point. States she has been having low-grade fevers around 99.5F as well as chills. Patient states she has been nauseated. Bessy ent is also reporting white vaginal discharge. States that she has had Trichomonas in the past and feels this is the same infection. She denies any pelvic pain, hematuria, dysuria, urinary urgency, urinary frequency. Patient is currently being treated at [facility] rehab facility for intravenous drug use with heroin. Patient denies any recent rash, shortness breath, chest pain, abdominal pain, diarrhea, constipation, back pain, numbness, tingling, dizziness, weakness, headache, visual changes, or any other complaints. 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 [id number] NAIF Rx#:[id number] Intake, IV Titration 250 Amount Vancomycin 750 mg In 250 Sodium Chloride 0.9% 250 ml @ 125 mls/hr IVPB Q8H NAIF Rx#:[id number] Other: Voiding Method Toilet Toilet # Voids 3 2 # Bowel Movements 2 - Exam - Constitutional General appearance: average body habitus, cooperative, disheveled, mild distress - EENT Eyes: anicteric sclerae, EOMI, PERRLA, poor dentition, normal appearance ENT: normal oropharynx Ears: bilateral: normal - Neck Neck: normal ROM Carotids: bilateral: upstroke normal, bruit absent Thyroid: bilateral: normal size - Respiratory Respiratory: bilateral: CTA - Cardiovascular Rhythm: irregularly irregular Heart sounds: normal: S1, S2 - Neurologic Neurologic: CNII-XII intact - Musculoskeletal Musculoskeletal: gait normal, generalized weakness, strength equal bilaterally, noted irregular cutaneous superficial abscess formation left axillary area as well as sternal area and posterior cervical area which are a small side - Psychiatric Psychiatric: A&O x's 3, appropriate affect, intact judgment & insight Midthoracic vertebral tenderness is present along with left some paraspinal swelling - Labs CBC & Chem 7: 12/20/18 10:37 12/20/18 10:37 Labs: Abnormal Lab Results - Last 24 Hours (Table) 12/20/18 Range/Units 10:37 WBC 15.5 H (3.8-10.6) k/uL Hgb 11.2 L (11.4-16.0) gm/dL Neutrophils # 11.8 H (1.3-7.7) k/uL Microbiology - Last 24 Hours (Table) 12/19/18 10:39 Blood Culture Gram Stain - Preliminary Blood 12/19/18 10:39 Blood Culture - Final Blood 12/18/18 09:05 Blood Culture Gram Stain - Preliminary Blood Blood Culture - Preliminary Presumptive MRSA 12/16/18 21:02 Genital Culture - Preliminary Vaginal Gardnerella vaginalis Assessment and Plan Assessment: Left axillary adenopathy, sternal area and posterior cervical area likely lymph node enlargement MRSA bacteremia persistent Multiple bilateral pulmonary nodules may be septic nodules COPD T11 vertebral body height loss with endplate, MRI is pending YVETTE to evaluate for endocarditis Plan: Surgical consult As above Time with Patient: Greater than 30
[2018-12-20] MEDS: metroNIDAZOLE 500 MG TAB PO SCH (16:10)
--- NOTE | 2018-12-20 17:30 | PN ---
PROGRESS NOTE DATE OF SERVICE: 12/20/2018 REASON FOR FOLLOWUP: 1. MRSA bacteremia. 2. Gardnerella infection. INTERVAL HISTORY: The patient's blood cultures are coming back positive, with the blood culture drawn yesterday showing gram-positive cocci. The patient is currently afebrile. She is feeling slightly better. Her back pain is currently controlled. No nausea, no vomiting, no abdominal pain or any diarrhea. PHYSICAL EXAMINATION: Blood pressure is 120/74 with a pulse of 87, temperature 99. She is 98% on room air. General description is a middle-aged female up in the room in no distress. RESPIRATORY SYSTEM: Unlabored breathing. Clear to auscultation anteriorly. HEART: S1, S2. Regular rate and rhythm. ABDOMEN: Soft. No tenderness. LABS: Hemoglobin 11.2, white count 15.5, creatinine 0.62. Blood culture from 12/19 has been positive. DIAGNOSTIC IMPRESSION AND PLAN: 1. Patient with methicillin-resistant Staphylococcus aeruginosa bacteremia with concern about possible endovascular deep source with WANDER to vancomycin. Will discontinue the vancomycin and start the patient on daptomycin 6 mg/kg. Blood culture was repeated YVETTE is scheduled for tomorrow. 2. Gardnerella vaginalis infection. Will add Flagyl 500 mg twice a day for 7 days. Continue with supportive care. MMODL / IJN: [id number] /
[2018-12-20] MEDS: DAPTOmycin 350 MG in SODIUM CHLORIDE 0.9% 50 ML IVPB SCH (17:53)
[2018-12-20] MEDS: hydrOXYzine HCL 25 MG TAB PO PRN (18:54)
[2018-12-20] MEDS ORDERED: VANCOMYCIN 1,250 MG in SODIUM CHLORIDE 0.9% 250 ML IVPB SCH (20:00)
[2018-12-20] MEDS: SODIUM CHLORIDE 0.9% 1,000 ML IV SCH (21:47)
[2018-12-20 23:41] LABS: Hepatitis A Antibody IgM Non-Reactive (Non-Reactive); Hepatitis B Core IgM Non-Reactive (Non-Reactive)
[2018-12-21] MEDS: metroNIDAZOLE 500 MG TAB PO SCH ×3 (00:11→21:06)
[2018-12-21] MEDS: KETOROLAC 30 MG/ML 1 ML VIAL IVP SCH ×2 (02:52→08:24)
[2018-12-21] MEDS ORDERED: fentaNYL (PF) 50 MCG/ML 2 ML AMP ONE (09:33)
[2018-12-21] MEDS ORDERED: SODIUM CHLORIDE 0.9% 500 ML 500 ML IV ONE (10:08)
[2018-12-21] MEDS: BENZOCAINE SPRAY 1 CAN TOPICAL ONE ×2 (10:15→10:20)
[2018-12-21] MEDS: fentaNYL (PF) 50 MCG/ML 2 ML AMP IVP ONE ×2 (10:20→10:26)
[2018-12-21] MEDS ORDERED: MIDAZOLAM (PF) 2 MG/2 ML VIAL IVP ONE ×2 (10:20→10:29)
[2018-12-21 10:22] LABS: Basophils % (A) 0 %; Eosinophils # (A) 0.2 k/uL (0-0.7); Eosinophils % (A) 2 %; HCT 33.5 % (34.0-46.0); HGB 10.7 gm/dL (11.4-16.0); Hypochromasia Slight; Lymphocytes # (A) 2.6 k/uL (1.0-4.8); Lymphocytes % (A) 20 %; MCH 27.5 pg (25.0-35.0); MCHC 31.8 g/dL (31.0-37.0); MCV 86.4 fL (80.0-100.0); Mean Platelet Volume 7.3; Monocytes # (A) 0.6 k/uL (0-1.0); Monocytes % (A) 5 %; Neutrophils # (A) 9.5 k/uL (1.3-7.7); Neutrophils % (A) 72 %; Platelet Count 310 k/uL (150-450); RBC 3.88 m/uL (3.80-5.40); RDW 14.8 % (11.5-15.5); WBC 13.2 k/uL (3.8-10.6)
[2018-12-21] MEDS: MIDAZOLAM (PF) 2 MG/2 ML VIAL IVP ONE ×2 (10:26→10:27)
[2018-12-21] MEDS: SODIUM CHLORIDE 0.9% 1,000 ML IV SCH ×2 (11:35→22:25)
--- NOTE | 2018-12-21 12:06 | ECHOT ---
TRANSESOPHAGEAL ECHOCARDIOGRAM DATE OF SERVICE: December 21, 2018 PERFORMING PHYSICIAN: Fermin Gonzalez MD. PROCEDURE PERFORMED: Transesophageal echocardiogram. INDICATION: This is a 38-year-old female patient who does have history of IV drug abuse was admitted to the hospital with sepsis and she was found to have MRSA bacteremia. She was seen by the infectious disease service and the transesophageal echocardiogram was advised to rule out any evidence of endocarditis. COMPLICATION: None. LEVEL OF SEDATION: Moderate with sedation length of 15 minutes. PROCEDURE DESCRIPTION: After obtaining an informed consent, explaining the procedure, benefits, risks, complications and alternatives, the patient was brought to the transesophageal echocardiogram suite. A pulse oximetry and heart rate monitors were attached to the patient prior to the procedure. The patient's throat was sprayed using lidocaine locally. Following that, the patient was turned into left lateral position. A bite guard was placed and the patient was then sedated with the above doses of Versed and fentanyl in divided doses. Following that, the transesophageal echocardiogram probe was advanced through the bite guard into the mid esophagus where 2-D echocardiogram images as well as color Doppler images of various cardiac structures were obtained. We evaluated the interatrial septum using 2-D echocardiogram, color Doppler, and contrast study. The procedure was completed. There were no complications. FINDINGS: The left ventricular dimension and systolic function appeared to be within normal limits. The ejection fraction appeared to be in the range of 50% to 55%. The right ventricle appeared to be of normal size and function. The left atrium appeared to be within normal limits for dimension. The left atrial appendage appeared to be free from any thrombus. The interatrial septum appeared to be intact. The aortic valve is trileaflet valve without stenosis or regurgitation. The mitral valve seems to be normal with trace MR. The tricuspid valve did show evidence of infective endocarditis with vegetation attached to the upstream side of the septal leaflet of tricuspid valve. Beside that, the pulmonic valve also showed evidence of endocarditis with vegetation attached to the pulmonic valve as well. No evidence of pericardial effusion seen. CONCLUSION: 1. 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 The septal leaflet of tricuspid valve has a large vegetation located on the upstream side. 2. Normal aortic valve and mitral valve. 3. Normal left ventricular dimension and systolic function. 4. Normal cardiac chamber sizes. 5. Intact interatrial septum without any evidence of shunt. 6. Normal left atrial appendage without any evidence of thrombus. 7. No evidence of pericardial effusion. MMODL / IJN: [id number] /
[2018-12-21] MEDS: diphenhydrAMINE 25 MG CAP PO PRN ×2 (12:41→23:51)
[2018-12-21] MEDS: LOPERAMIDE 2 MG CAP PO PRN (12:41)
[2018-12-21] MEDS: hydrOXYzine HCL 25 MG TAB PO PRN (12:41)
[2018-12-21] MEDS: ACETAMINOPHEN TAB 325 MG TAB PO PRN ×2 (12:42→21:06)
--- NOTE | 2018-12-21 13:30 | P.PN ---
Subjective Progress Note Date: 12/21/18 Principal diagnosis: Multiple bilateral pulmonary nodules likely septic nodules, COPD, discitis probably T11, MRSA bacteremia, IV drug abuse, adenopathy likely reactive related to MRSA infection and MRSA bacteremia 12/21/2018, patient seen and evaluated examined during the rounds clinically he she is doing well cuff and congestion is improved she is a being considered for a PICC line placement for long-term antibiotics 12/20/2018 patient seen and evaluated examined care plan discussed with the staff, I and D has been canceled as ultrasound is positive for more of a lymphad enopathy rather than abscess, cardiology has been consulted for YVETTE as the preclinical probability of endocarditis very patient remains on IV vancomycin ID service following 12/18/2018, patient seen and evaluated examined during the rounds she is doing well however the blood cultures are positive for gram-positive cocci likely MRSA, ID services following spine surgery is following as well, patient has a multiple nodules in left axilla for which surgical consult has been requested, she is complaining of 2 new nodules developed in the sternal area and in cervical area there appeared to be a metastatic small abscess, 38-year-old female who was seen evaluated examined in the floor this patient is transferred from [place] where she was admitted for drug rehab, she has about 6 year history of the IV heroin use she presented and evaluated in emergency department from mid thoracic back pain that radiates down her back and up into her neck. Patient states it is radiating down her right leg as well. Patient states this pain started 3 days ago. Patient is also reporting multiple abscesses to the left axillary region. Patient states she did recently have these incised and drained and was started on Bactrim. States she has taken 2 full days of Bactrim at this point. States she has been having low-grade fevers around 99.5F as well as chills. Patient states she has been nauseated. Patient is also reporting white vaginal discharge. States that she has had Trichomonas in the past and feels this is the same infection. She denies any pelvic pain, hematuria, dysuria, urinary urgency, urinary frequency. Patient is currently being treated at [place] rehab facility for intravenous drug use with heroin. Patient denies any recent rash, shortness breath, chest pain, abdom inal pain, diarrhea, constipation, back pain, numbness, tingling, dizziness, weakness, headache, visual changes, or any other complaints. 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 [id number] NAIF Rx#:[id number] Intake, IV Titration 250 Amount Vancomycin 750 mg In 250 Sodium Chloride 0.9% 250 ml @ 125 mls/hr IVPB Q8H NAIF Rx#:[id number] Other: # Voids 2 - Exam - Constitutional General appearance: average body habitus, cooperative, disheveled, mild distress - EENT Eyes: anicteric sclerae, EOMI, PERRLA, poor dentition, normal appearance ENT: normal oropharynx Ears: bilateral: normal - Neck Neck: normal ROM Carotids: bilateral: upstroke normal, bruit absent Thyroid: bilateral: normal size - Respiratory Respiratory: bilateral: CTA - Cardiovascular Rhythm: irregularly irregular Heart sounds: normal: S1, S2 - Neurologic Neurologic: CNII-XII intact - Musculoskeletal Musculoskeletal: gait normal, generalized weakness, strength equal bilaterally, noted irregular cutaneous superficial abscess formation left axillary area as well as sternal area and posterior cervical area which are a small side - Psychiatric Psychiatric: A&O x's 3, appropriate affect, intact judgment & insight Midthoracic vertebral tenderness is present along with left some paraspinal swelling - Labs CBC & Chem 7: 12/21/18 09:25 12/21/18 09:25 Labs: Abnormal Lab Results - Last 24 Hours (Table) 12/20/18 12/21/18 Range/Units 10:30 09:25 WBC 13.2 H (3.8-10.6) k/uL Hgb 10.7 L (11.4-16.0) gm/dL Hct 33.5 L (34.0-46.0) % Neutrophils # 9.5 H (1.3-7.7) k/uL Hep C IgG Ab Reactive H (Non-Reactive) Microbiology - Last 24 Hours (Table) 12/16/18 21:02 Gram Stain - Final Vaginal Genital Culture - Final Gardnerella vaginalis 12/19/18 10:39 Blood Culture Gram Stain - Preliminary Blood Blood Culture - Preliminary Presumptive MRSA 12/18/18 09:05 Blood Culture Gram Stain - Final Blood Blood Culture - Final Methicillin resist S. aureus Assessment and Plan Assessment: Left axillary adenopathy, sternal area and posterior cervical area likely lymph node enlargement likely related to MRSA MRSA bacteremia persistent Multiple bilateral pulmonary nodules may be septic nodules COPD T11 vertebral body height loss with endplate, MRI is pending YVETTE to evaluate for endocarditis Plan: Patient will need long-term antibiotics awaiting further evaluation Time with Patient: Greater than 30
[2018-12-21] MEDS: DAPTOmycin 350 MG in SODIUM CHLORIDE 0.9% 50 ML IVPB SCH (16:05)
--- NOTE | 2018-12-21 16:53 | P.PN ---
Subjective Progress Note Date: 12/21/18 12/21/2017: Patient seen and examined. Patient states that she is feeling a little bit better. She is afebrile. She states that Toradol helped her pain more than Motrin. T-max was 100.2 on 12/20/2018 and 2107. The patient continues to have positive blood cultures for MRSA. The patient underwent YVETTE and was found to have endocarditis. Objective - Vital Signs Vital signs: Vital Signs Temp 99.7 F H 12/21/18 13:51 Pulse 82 12/21/18 13:51 Resp 16 12/21/18 13:51 BP 119/73 12/21/18 13:51 Pulse Ox 97 12/21/18 13:51 Intake & Output 12/20/18 12/21/18 12/21/18 18:59 06:59 18:59 Intake Total 850 850 Balance 850 850 Intake: IV 600 800 Sodium Chloride 0.9% 1, 600 600 000 ml @ 75 mls/hr IV . [id number] NAIF Rx#:[id number] Intake, IV Titration 250 50 Amount DAPTOmycin 350 mg In 50 Sodium Chloride 0.9% 50 ml @ 100 mls/hr IVPB Q24H NAIF Rx#:[id number] Vancomycin 750 mg In 250 Sodium Chloride 0.9% 250 ml @ 125 mls/hr IVPB Q8H NAIF Rx#:[id number] Other: # Voids 2 - Exam Gen.: Patient is alert and oriented 3, no acute distress Cardiovascular: Regular rate and rhythm, S1/S2 Lungs: Diminished breath sounds bilaterally otherwise clear Abdomen: Soft nontender nondistended positive bowel sounds Extremities: No edema - Labs CBC & Chem 7: 12/21/18 09:25 12/21/18 09:25 Labs: Abnormal Lab Results - Last 24 Hours (Table) 12/20/18 12/21/18 Range/Units 10:30 09:25 WBC 13.2 H (3.8-10.6) k/uL Hgb 10.7 L (11.4-16.0) gm/dL Hct 33.5 L (34.0-46.0) % Neutrophils # 9.5 H (1.3-7.7) k/uL Hep C IgG Ab Reactive H (Non-Reactive) Microbiology - Last 24 Hours (Table) 12/16/18 21:02 Gram Stain - Final Vaginal Genital Culture - Final Gardnerella vaginalis 12/19/18 10:39 Blood Culture Gram Stain - Preliminary Blood Blood Culture - Preliminary Presumptive MRSA 12/18/18 09:05 Blood Culture Gram Stain - Final Blood Blood Culture - Final Methicillin resist S. 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
[2018-12-21] MEDS: NAPROXEN 250 MG TAB PO SCH ×2 (17:18→23:52)
[2018-12-21] MEDS ORDERED: KETOROLAC 30 MG/ML 1 ML VIAL IVP SCH (18:00)
--- NOTE | 2018-12-21 20:03 | PN ---
PROGRESS NOTE DATE OF SERVICE: 12/21/2018. REASON FOR FOLLOW UP: MRSA endocarditis. INTERVAL HISTORY: The patient did have a low-grade fever last night of 100.2. Afebrile this morning. The patient is status post PE with evidence of pulmonic and tricuspid wall endocarditis. The patient currently denies having any chest pain. No shortness of breath or cough. No nausea or vomiting. No abdominal pain or diarrhea. PHYSICAL EXAMINATION: Blood pressure 119/73 with a pulse of 82, temperature 98.7, she is 97% on room air. General description is a middle-aged female up in the room in no distress. Respiratory system: Unlabored breathing. Clear to auscultation anteriorly. Heart: S1, S2. Regular rate and rhythm. Abdomen soft, no tenderness. LABS: Hemoglobin 13.2, antibodies positive. Blood cultures 12/19 has been positive, 12/20 and 12/21, currently pending. 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 The patient at this time covered with daptomycin. However in view of the large seen on the wall, may benefit from CT surgery evaluation or possible transfer to tertiary care. All discussed with the admitting team. Continue supportive care MMODL / IJN: [id number] /
[2018-12-22] MEDS: hydrOXYzine HCL 25 MG TAB PO PRN (05:17)
[2018-12-22] MEDS: ACETAMINOPHEN TAB 325 MG TAB PO PRN ×3 (05:17→20:36)
[2018-12-22] MEDS: NAPROXEN 250 MG TAB PO SCH (07:26)
[2018-12-22] MEDS: metroNIDAZOLE 500 MG TAB PO SCH ×2 (07:27→20:36)
[2018-12-22] MEDS: LOPERAMIDE 2 MG CAP PO PRN ×2 (07:58→17:47)
[2018-12-22 11:30] LABS: Basophils # (A) 0.1 k/uL (0-0.2); Basophils % (A) 0 %; Eosinophils # (A) 0.1 k/uL (0-0.7); Eosinophils % (A) 1 %; HCT 34.4 % (34.0-46.0); HGB 10.6 gm/dL (11.4-16.0); Lymphocytes # (A) 3.6 k/uL (1.0-4.8); Lymphocytes % (A) 20 %; MCH 27.1 pg (25.0-35.0); MCV 87.6 fL (80.0-100.0); Monocytes # (A) 0.7 k/uL (0-1.0); Monocytes % (A) 4 %; Neutrophils # (A) 12.7 k/uL (1.3-7.7); Neutrophils % (A) 72 %; Platelet Count 346 k/uL (150-450); RBC 3.92 m/uL (3.80-5.40); WBC 17.6 k/uL (3.8-10.6)
[2018-12-22 11:37] LABS: ALT 35 U/L (9-52); AST 18 U/L (14-36); Albumin 3.3 g/dL (3.5-5.0); Alkaline Phosphatase 103 U/L (38-126); Anion Gap 7 mmol/L; Blood Urea Nitrogen 17 mg/dL (7-17); Calcium 8.8 mg/dL (8.4-10.2); Carbon Dioxide 19 mmol/L (22-30); Chloride 116 mmol/L (98-107); Glucose 51 mg/dL (74-99); Potassium 4.3 mmol/L (3.5-5.1); Sodium 142 mmol/L (137-145); Total Bilirubin 0.3 mg/dL (0.2-1.3); Total Protein 7.1 g/dL (6.3-8.2)
[2018-12-22] MEDS: KETOROLAC 30 MG/ML 1 ML VIAL IVP SCH ×2 (12:16→17:46)
--- NOTE | 2018-12-22 14:07 | P.PN ---
Subjective Progress Note Date: 12/22/18 Principal diagnosis: Multiple bilateral pulmonary nodules likely septic nodules, COPD, discitis probably T11, MRSA bacteremia, IV drug abuse, adenopathy likely reactive related to MRSA infection and MRSA bacteremia 12/22/2018, patient is in good distress is doing well she is waiting for her PICC line placement and placement in extended care facility her repeat cultures are pending, she has a YVETTE done which revealed presence of infective endocarditis with vegetations on both tricuspid as well as pulmonic valve this confirms the vegetations metastatic to the lungs 12/21/2018, patient seen and evaluated examined during the rounds clinically he she is doing well cuff and congestion is improved she is a being considered for a PICC line placement for long-term antibiotics 12/20/2018 patient seen and evaluated examined care plan discussed with the staff, I and D has been canceled as ultrasound is positive for more of a lymphadenopathy rather than abscess, cardiology has been consulted for YVETTE as the preclinical probability of endocarditis very patient remains on IV van comycin ID service following 12/18/2018, patient seen and evaluated examined during the rounds she is doing well however the blood cultures are positive for gram-positive cocci likely MRSA, ID services following spine surgery is following as well, patient has a multiple nodules in left axilla for which surgical consult has been requested, she is complaining of 2 new nodules developed in the sternal area and in cervical area there appeared to be a metastatic small abscess, 38-year-old female who was seen evaluated examined in the floor this patient is transferred from [place] where she was admitted for drug rehab, she has about 6 year history of the IV heroin use she presented and evaluated in emergency department from mid thoracic back pain that radiates down her back and up into her neck. Patient states it is radiating down her right leg as well. Patient states this pain started 3 days ago. Patient is also reporting multiple abscesses to the left axillary region. Patient states she did recently have these incised and drained and was started on Bactrim. States she has taken 2 full days of Bactrim at this point. States she has been having low-grade fevers around 99.5F as well as chills. Patient states she has been nauseated. Patient is also reporting white vaginal discharge. States that she has had Trichomonas in the past and feels this is the same infection. She denies any pelvic pain, hematuria, dysuria, urinary urgency, urinary frequency. [facility] with heroin. Patient denies any recent rash, shortness breath, chest pain, abdominal pain, diarrhea, constipation, back pain, numbness, tingling, dizziness, weakness, headache, visual changes, or any other complaints. 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 [id number] NAIF Rx#:[id number] Intake, IV Titration 50 Amount DAPTOmycin 350 mg In 50 Sodium Chloride 0.9% 50 ml @ 100 mls/hr IVPB Q24H NAIF Rx#:[id number] Oral 1000 Other: Voiding Method Toilet Toilet # Voids 2 - Exam - Constitutional General appearance: average body habitus, cooperative, disheveled, mild distress - EENT Eyes: anicteric sclerae, EOMI, PERRLA, poor dentition, normal appearance ENT: normal oropharynx Ears: bilateral: normal - Neck Neck: normal ROM Carotids: bilateral: upstroke normal, bruit absent Thyroid: bilateral: normal size - Respiratory Respiratory: bilateral: CTA - Cardiovascular Rhythm: irregularly irregular Heart sounds: normal: S1, S2 - Neurologic Neurologic: CNII-XII intact - Musculoskeletal Musculoskeletal: gait normal, generalized weakness, strength equal bilaterally, noted irregular cutaneous superficial abscess formation left axillary area as we ll as sternal area and posterior cervical area which are a small side - Psychiatric Psychiatric: A&O x's 3, appropriate affect, intact judgment & insight Midthoracic vertebral tenderness is present along with left some paraspinal swelling - Labs CBC & Chem 7: 12/22/18 10:25 12/22/18 10:25 Labs: Abnormal Lab Results - Last 24 Hours (Table) 12/22/18 12/22/18 Range/Units 10:25 10:25 WBC 17.6 H (3.8-10.6) k/uL Hgb 10.6 L (11.4-16.0) gm/dL Neutrophils # 12.7 H (1.3-7.7) k/uL Chloride 116 H (98-107) mmol/L Carbon Dioxide 19 L (22-30) mmol/L Glucose 51 L (74-99) mg/dL Albumin 3.3 L (3.5-5.0) g/dL Microbiology - Last 24 Hours (Table) 12/21/18 09:25 Blood Culture Gram Stain - Preliminary Blood Blood Culture - Preliminary Presumptive MRSA 12/21/18 09:25 Blood Culture - Final Blood 12/19/18 10:39 Blood Culture Gram Stain - Final Blood Blood Culture - Final Methicillin resist S. 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
[2018-12-22] MEDS: SODIUM CHLORIDE 0.9% 1,000 ML IV SCH (14:23)
--- NOTE | 2018-12-22 15:13 | PN ---
PROGRESS NOTE SUBJECTIVE: 38-year-old white female with a back pain, left axillary adenitis and endocarditis. Remains on IV antibiotics for 6 weeks. Awaiting PICC line placement, home placement for IV antibiotics. Lungs are clear. Cardiovascular S1-S2. Hematology negative Homans. ASSESSMENT: 1. Endocarditis. 2. Coronary artery disease. 3. Septic emboli. 4. MRSA bacteremia. PLAN: Continue current treatments. Remain on IV antibiotics. MMODL / IJN: [id number] /
--- NOTE | 2018-12-22 15:40 | PN ---
PROGRESS NOTE Ms. Ibrahim is a 38-year-old female who was admitted with bacteremia. This patient had methicillin-resistant Staph aureus. Underwent transesophageal echocardiogram which showed evidence of vegetations on the tricuspid valve. The patient clinically remains stable. Her temperature this morning was 97.3, blood pressure is 132/74 mmHg. First and second heart sounds are heard. Lungs are clinically clear to auscultation and percussion. The patient is currently being managed by Dr. Becerra as far as antibiotics are concerned. Hopefully with the medical treatment, patient should get better. We will obtain cardiothoracic surgery consultation. MMODL / IJN: [id number] /
[2018-12-22] MEDS: DAPTOmycin 350 MG in SODIUM CHLORIDE 0.9% 50 ML IVPB SCH (16:38)
[2018-12-22 17:57] LABS: Glucose,Whole Blood 135 mg/dL (75-99)
[2018-12-22] MEDS: diphenhydrAMINE 25 MG CAP PO PRN (20:36)
[2018-12-23] MEDS: KETOROLAC 30 MG/ML 1 ML VIAL IVP SCH ×4 (00:02→18:04)
[2018-12-23] MEDS: hydrOXYzine HCL 25 MG TAB PO PRN (00:02)
[2018-12-23] MEDS: SODIUM CHLORIDE 0.9% 1,000 ML IV SCH ×2 (01:36→07:29)
--- NOTE | 2018-12-23 06:37 | P.GSCN ---
<Kenisha Covarrubias - Last Filed: 12/23/18 06:19> History of Present Illness Consult date: 12/22/18 Reason for Consult: infective endocarditis Requesting physician: Evelyn Almaguer History of present illness: This is a 38-year-old female patient who does not follow with a primary care physician on a regular basis. She has a previous medical history of orthopedic surgery, hepatitis C, anxiety/depression, MRSA infection, current tobacco depen dence, and heroin and opiate abuse. She presented to [facility] emergency room with complaints of thoracic back pain with radiation down her back and into her neck which began 3 days prior to admission. She also reported multiple abscesses to her left axillary region which were recently incised and drained, and she was started on Bactrim. In addition she reported low-grade fevers and chills as well as nausea. She is currently being treated at [facility] for IV drug abuse. She was admitted for evaluation and treatment of infection with consultations placed for infectious disease, pulmonology, cardiology, and orthopedics. Part of her workup included a transthoracic echocardiogram which demonstrated normal LV function with an EF 60-65% and structurally normal valves. She continued to have persistent MRSA bacteremia and was recommended to undergo transesophageal echocardiogram which was completed yesterday and which demonstrated evidence of infective endocarditis with vegetation on the tricuspid valve as well as pulmonic valve. Due to these findings Dr. Senior from cardiothoracic surgery was consulted regarding recommendations. Review of Systems Review of systems was completed it was negative except as noted. - Constitutional Reports chills, Reports fever - Gastrointestinal Reports nausea - Musculoskeletal Musculoskeleta Comment(s): Thoracic back pain Reports as per HPI, Reports neck pain - Integumentary Reports wounds Past Medical History Additional Past Medical History / Comment(s): hep c History of Any Multi-Drug Resistant Organisms: MRSA Year Discovered:: 12/18/18 MDRO Source:: blood Past Surgical History: Orthopedic Surgery Additional Past Surgical History / Comment(s): Amputation of LT 3rd digit Past Anesthesia/Blood Transfusion Reactions: No Reported Reaction Past Psychological History: Anxiety, Depression Smoking Status: Current some day smoker Past Alcohol Use History: None Reported Past Drug Use History: Heroin, Opiates - Past Family History Mother Family Medical History: Hypertension Medications and Allergies Home Medications Medication Instructions Recorded Confirmed Type Multivitamins, Thera [Multivitamin 1 tab PO DAILY 12/11/17 12/17/18 History (formulary)] Acetaminophen Tab [Tylenol Tab] 650 mg PO Q6H PRN 12/17/18 12/17/18 History Ibuprofen [Motrin Ib] 200 mg PO Q4H PRN 12/17/18 12/17/18 History Allergies Allergy/AdvReac Type Severity Reaction Status Date / Time No Known Allergies Allergy Verified 12/17/18 08:38 Surgical - Exam Vital Signs Temp Pulse Resp BP Pulse Ox 98.5 F 89 18 101/62 98 12/16/18 18:57 12/16/18 18:57 12/16/18 18:57 12/16/18 18:57 12/16/18 18:57 - General well developed, well nourished, no distress, no pain - Eyes PERRL, normal ocular movement - ENT no hearing loss - Neck no masses, no bruits, trachea midline - Respiratory normal expansion, normal respiratory effort, clear to auscultation - Cardiovascular Rhythm: regular Heart Sounds: normal: S1, S2 - Abdomen Abdomen: soft, non tender, bowel sounds - Genitourinary Deferred - Rectum Deferred - Integumentary Small abscesses to the left axillary region - Neurologic normal coordination, normal sensation - Musculoskeletal normal gait, normal posture - Psychiatric oriented to time, oriented to person, oriented to place, speech is normal, memory intact Results - Labs 12/22/18 10:25 12/22/18 10:25 Abnormal Lab Results - Last 24 Hours (Table) 12/22/18 12/22/18 Range/Units 10:25 10:25 WBC 17.6 H (3.8-10.6) k/uL Hgb 10.6 L (11.4-16.0) gm/dL Neutrophils # 12.7 H (1.3-7.7) k/uL Chloride 116 H (98-107) mmol/L Carbon Dioxide 19 L (22-30) mmol/L Glucose 51 L (74-99) mg/dL Albumin 3.3 L (3.5-5.0) g/dL Microbiology - Last 24 Hours (Table) 12/21/18 09:25 Blood Culture Gram Stain - Preliminary Blood Blood Culture - Preliminary Presumptive MRSA 12/21/18 09:25 Blood Culture - Final Blood 12/19/18 10:39 Blood Culture Gram Stain - Final Blood Blood Culture - Final Methicillin resist S. aureus 12/20/18 16:47 Blood Culture - Preliminary Blood No Growth after 24 hours Diabetes panel 12/22/18 Range/Units 10:25 Sodium 142 (137-145) mmol/L Potassium 4.3 (3.5-5.1) mmol/L Chloride 116 H (98-107) mmol/L Carbon Dioxide 19 L (22-30) mmol/L BUN 17 (7-17) mg/dL Creatinine 0.69 (0.52-1.04) mg/dL Glucose 51 L (74-99) mg/dL Calcium 8.8 (8.4-10.2) mg/dL AST 18 (14-36) U/L ALT 35 (9-52) U/L Alkaline Phosphatase 103 (38-126) U/L Total Protein 7.1 (6.3-8.2) g/dL Albumin 3.3 L (3.5-5.0) g/dL Calcium panel 12/22/18 Range/Units 10:25 Calcium 8.8 (8.4-10.2) mg/dL Albumin 3.3 L (3.5-5.0) g/dL Pituitary panel 12/22/18 Range/Units 10:25 Sodium 142 (137-145) mmol/L Potassium 4.3 (3.5-5.1) mmol/L Chloride 116 H (98-107) mmol/L Carbon Dioxide 19 L (22-30) mmol/L BUN 17 (7-17) mg/dL Creatinine 0.69 (0.52-1.04) mg/dL Glucose 51 L (74-99) mg/dL Calcium 8.8 (8.4-10.2) mg/dL Adrenal panel 12/22/18 Range/Units 10:25 Sodium 142 (137-145) mmol/L Potassium 4.3 (3.5-5.1) mmol/L Chloride 116 H (98-107) mmol/L Carbon Dioxide 19 L (22-30) mmol/L BUN 17 (7-17) mg/dL Creatinine 0.69 (0.52-1.04) mg/dL Glucose 51 L (74-99) mg/dL Calcium 8.8 (8.4-10.2) mg/dL Total Bilirubin 0.3 (0.2-1.3) mg/dL AST 18 (14-36) U/L ALT 35 (9-52) U/L Alkaline Phosphatase 103 (38-126) U/L Total Protein 7.1 (6.3-8.2) g/dL Albumin 3.3 L (3.5-5.0) g/dL - Imaging Additional studies: Echocardiogram results reviewed Assessment and Plan Assessment: 1. Infective endocarditis with vegetation on the tricuspid and pulmonic valves 2. MRSA bacteremia 3. IV heroin and opiate abuse 3. Multiple pulmonary nodules 4. Current tobacco dependence 5. History of hepatitis C 6. Anxiety/depression Plan: The patient was seen and examined at the bedside with Dr. Senior. Chart/diagnostics were reviewed. There is no surgical intervention warranted at this time. Continue IV antibiotics per infectious disease recommendations. Continued medical management per primary care service and other consultants. Thank you Dr. Almaguer for this consult. Please call us with any further questions. Time with Patient: Greater than 30 <Logan Senior R - Last Filed: 12/23/18 10:02> Surgical - Exam Vital Signs Temp Pulse Resp BP Pulse Ox 98.5 F 89 18 101/62 98 12/16/18 18:57 12/16/18 18:57 12/16/18 18:57 12/16/18 18:57 12/16/18 18:57 Results - Labs 12/22/18 10:25 12/22/18 10:25 Abnormal Lab Results - Last 24 Hours (Table) 12/22/18 12/22/18 12/22/18 Range/Units 10:25 10:25 17:55 WBC 17.6 H (3.8-10.6) k/uL Hgb 10.6 L (11.4-16.0) gm/dL Neutrophils # 12.7 H (1.3-7.7) k/uL Chloride 116 H (98-107) mmol/L Carbon Dioxide 19 L (22-30) mmol/L Glucose 51 L (74-99) mg/dL POC Glucose (mg/dL) 135 H (75-99) mg/dL Albumin 3.3 L (3.5-5.0) g/dL Microbiology - Last 24 Hours (Table) 12/20/18 16:47 Blood Culture - Preliminary Blood No Growth after 48 hours 12/21/18 09:25 Blood Culture Gram Stain - Preliminary Blood Blood Culture - Preliminary Presumptive MRSA Diabetes panel 12/22/18 Range/Units 10:25 Sodium 142 (137-145) mmol/L Potassium 4.3 (3.5-5.1) mmol/L Chloride 116 H (98-107) mmol/L Carbon Dioxide 19 L (22-30) mmol/L BUN 17 (7-17) mg/dL Creatinine 0.69 (0.52-1.04) mg/dL Glucose 51 L (74-99) mg/dL Calcium 8.8 (8.4-10.2) mg/dL AST 18 (14-36) U/L ALT 35 (9-52) U/L Alkaline Phosphatase 103 (38-126) U/L Total Protein 7.1 (6.3-8.2) g/dL Albumin 3.3 L (3.5-5.0) g/dL Calcium panel 12/22/18 Range/Units 10:25 Calcium 8.8 (8.4-10.2) mg/dL Albumin 3.3 L (3.5-5.0) g/dL Pituitary panel 12/22/18 Range/Units 10:25 Sodium 142 (137-145) mmol/L Potassium 4.3 (3.5-5.1) mmol/L Chloride 116 H (98-107) mmol/L Carbon Dioxide 19 L (22-30) mmol/L BUN 17 (7-17) mg/dL Creatinine 0.69 (0.52-1.04) mg/dL Glucose 51 L (74-99) mg/dL Calcium 8.8 (8.4-10.2) mg/dL Adrenal panel 12/22/18 Range/Units 10:25 Sodium 142 (137-145) mmol/L Potassium 4.3 (3.5-5.1) mmol/L Chloride 116 H (98-107) mmol/L Carbon Dioxide 19 L (22-30) mmol/L BUN 17 (7-17) mg/dL Creatinine 0.69 (0.52-1.04) mg/dL Glucose 51 L (74-99) mg/dL Calcium 8.8 (8.4-10.2) mg/dL Total Bilirubin 0.3 (0.2-1.3) mg/dL AST 18 (14-36) U/L ALT 35 (9-52) U/L Alkaline Phosphatase 103 (38-126) U/L Total Protein 7.1 (6.3-8.2) g/dL Albumin 3.3 L (3.5-5.0) g/dL Assessment and Plan Assessment: 38 yof w h/o IVDA. Infection in left axillary LNs w ? of abscess. BC + MRSA. Echo shows evidence of vegetation on Rt sided ht valves. Rec medical management with IV abx. No surgery indicated at this time.
[2018-12-23] MEDS: metroNIDAZOLE 500 MG TAB PO SCH ×2 (07:28→20:58)
[2018-12-23] MEDS: LOPERAMIDE 2 MG CAP PO PRN ×2 (12:22→19:44)
[2018-12-23] MEDS: diphenhydrAMINE 25 MG CAP PO PRN (13:02)
--- NOTE | 2018-12-23 14:22 | P.PN ---
Subjective Progress Note Date: 12/23/18 12/23/2018: Patient seen and examined. Patient is resting in bed on room air. She states her cough and breathing are improving. She did have a T-max of 99.8 overnight. Objective - Vital Signs Vital signs: Vital Signs Temp 98.1 F 12/23/18 05:30 Pulse 80 12/23/18 05:30 Resp 18 12/23/18 05:30 BP 115/71 12/23/18 05:30 Pulse Ox 98 12/23/18 05:30 Intake & Output 12/22/18 12/23/18 12/23/18 18:59 06:59 18:59 Intake Total 950 200 Balance 950 200 Intake: Oral 950 200 Other: Voiding Method Toilet Toilet Toilet # Voids 2 2 - Exam Gen.: Patient is alert and oriented 3, no acute distress Cardiovascular: Regular rate and rhythm, S1/S2 Lungs: Diminished breath sounds bilaterally otherwise clear Abdomen: Soft nontender nondistended positive bowel sounds Extremities: No edema - Labs CBC & Chem 7: 12/22/18 10:25 12/23/18 11:23 Labs: Abnormal Lab Results - Last 24 Hours (Table) 12/22/18 Range/Units 17:55 POC Glucose (mg/dL) 135 H (75-99) mg/dL Microbiology - Last 24 Hours (Table) 12/21/18 09:25 Blood Culture Gram Stain - Final Blood Blood Culture - Final Methicillin resist S. aureus 12/20/18 16:47 Blood Culture - Preliminary Blood No Growth after 48 hours Assessment and Plan Assessment: Infective endocarditis with vegetation on tricuspid and pulmonic valves Septic emboli MRSA bacteremia IV drug abuse Left axillary adenopathy COPD with active tobacco abuse Normochromic normocytic anemia Hepatitis C Antibiotics per ID Cardiology recommendations Monitor cultures and response Incentive spirometry and pulmonary hygiene GI and DVT prophylaxis
[2018-12-23] MEDS: ACETAMINOPHEN TAB 325 MG TAB PO PRN (16:31)
[2018-12-23] MEDS: DAPTOmycin 350 MG in SODIUM CHLORIDE 0.9% 50 ML IVPB SCH (18:05)
--- NOTE | 2018-12-23 22:13 | P.PN ---
Subjective Progress Note Date: 12/23/18 Principal diagnosis: MRSA bacteremia secondary to tricuspid and pulmonic valve endocarditis Patient is a 38-year-old female presented to hospital with a fever and intractable back pain in this patient who noticed to have MRSA bacteremia initial concern for possible discitis in view of significant back pain on presentation however MRI this point has been negative in view of the persistent bacteremia patient did have a YVETTE that has been suggestive of pulmonic and tri cuspid valve endocarditis with a fairly large vegetation on the tricuspid valve for the patient has been evaluated by CT surgery recommended, medical treatment. On today's evaluation that is 12/23/2018, the patient remains to be afebrile denies any rigors or chills, the patient denies having any chest pain or shortness of breath or cough no abdominal pain no nausea no vomiting or any diarrhea Objective - Vital Signs Vital signs: Vital Signs Temp 98.8 F 12/23/18 21:04 Pulse 85 12/23/18 21:04 Resp 18 12/23/18 21:04 BP 128/69 12/23/18 21:04 Pulse Ox 93 L 12/23/18 21:04 Intake & Output 12/23/18 12/23/18 12/24/18 06:59 18:59 06:59 Intake Total 950 400 Balance 950 400 Intake: Oral 950 400 Other: Voiding Method Toilet Toilet # Voids 2 1 - Exam GENERAL DESCRIPTION:[ Patient is awake and alert in no distress] HEENT: [Oral mucosa is dry and no pharyngeal erythema] EYES : [No pallor or scleral icterus] RESPIRATORY SYSTEM: [Unlabored breathing clear to auscultation] CARDIA VASCULAR SYSTEM: [S1-S2 regular rate and rhythm no murmur] GI: [Abdominal soft there's no tenderness no organomegaly] EXTREMITIES: [No edema feet] - Labs CBC & Chem 7: 12/22/18 10:25 12/23/18 11:23 Labs: Microbiology - Last 24 Hours (Table) 12/20/18 16:47 Blood Culture - Preliminary Blood No Growth after 72 hours 12/21/18 09:25 Blood Culture Gram Stain - Final Blood Blood Culture - Final Methicillin resist S. aureus Assessment and Plan Assessment: 1-patient with MRSA bacteremia secondary to pulmonic and tricuspid valve en docarditis in this patient blood culture remains to be positive with last blood culture set was drawn on 12/21/2018 (1) Bacteremia due to methicillin resistant Staphylococcus aureus Current Visit: Yes Status: Acute Code(s): R78.81 - BACTEREMIA SNOMED Code(s): 68279479652279370 (2) Abscess of left axilla Current Visit: Yes Status: Acute Code(s): L02.412 - CUTANEOUS ABSCESS OF LEFT AXILLA SNOMED Code(s): 43276481 (3) Intractable back pain Current Visit: Yes Status: Acute Code(s): M54.9 - DORSALGIA, UNSPECIFIED SNOMED Code(s): 990707479 Plan: 1-blood cultures will be repeated daily to document clearance of bacteremia before placing a PICC line 2-patient will likely need placement to complete her IV antibiotic therapy 3-daptomycin currently getting at 6mg per KG will add rifampin Time with Patient: Less than 30
--- NOTE | 2018-12-23 23:57 | PN ---
PROGRESS NOTE SUBJECTIVE: 38-year-old white female with back pain, left axillary abscess, vegetations on the heart valves for which IV antibiotics have been ordered for 6 weeks. PICC line will be done and possible rehab center placement. Cardiovascular S1-S2. Lungs clear. GI soft. Hematology negative Homans. ASSESSMENT: 1. Endocarditis. 2. Left axillary abscess. Continue current treatment, need IV antibiotics in the rehab center. Do not recommend going home with a PICC line if she is a drug abuser. MMODL / IJN: [id number] /
[2018-12-24] MEDS: diphenhydrAMINE 25 MG CAP PO PRN (00:05)
[2018-12-24] MEDS: KETOROLAC 30 MG/ML 1 ML VIAL IVP SCH ×5 (05:29→23:23)
[2018-12-24] MEDS: SODIUM CHLORIDE 0.9% 1,000 ML IV SCH ×2 (05:30→21:10)
[2018-12-24] MEDS: metroNIDAZOLE 500 MG TAB PO SCH ×2 (09:25→21:10)
[2018-12-24] MEDS: ACETAMINOPHEN TAB 325 MG TAB PO PRN (09:29)
[2018-12-24] MEDS: LOPERAMIDE 2 MG CAP PO PRN ×2 (10:00→18:18)
--- NOTE | 2018-12-24 15:07 | P.PN ---
Subjective Progress Note Date: 12/24/18 12/24/18 afebrile,T-max 99.8.maintaining O2 sats in the high 90s on room air. Denies chest pain, palpitations or increasing shortness of breath. Objective - Vital Signs Vital signs: Vital Signs Temp 98.5 F 12/24/18 14:29 Pulse 93 12/24/18 14:29 Resp 16 12/24/18 14:29 BP 130/81 12/24/18 14:29 Pulse Ox 99 12/24/18 14:29 Intake & Output 12/23/18 12/24/18 12/24/18 18:59 06:59 18:59 Intake Total 400 420 Balance 400 420 Weight 58.196 kg Intake: Oral 400 420 Other: Voiding Method Toilet Toilet # Voids 2 2 - Exam Gen.: Patient is alert and oriented 3, no acute distress Cardiovascular: Regular rate and rhythm, S1/S2 Lungs: Diminished breath sounds bilaterally otherwise clear Abdomen: Soft nontender nondistended positive bowel sounds Extremities: No edema Neuro: no focal deficits Microbiology 12/23/18 12:03 Blood Blood Culture Gram Stain - Preliminary 12/23/18 12:03 Blood Blood Culture - Preliminary Presumptive MRSA 12/23/18 12:03 Blood Blood Culture - Final 12/20/18 16:47 Blood Blood Culture - Preliminary No Growth after 72 hours 12/21/18 09:25 Blood Blood Culture Gram Stain - Final 12/21/18 09:25 Blood Blood Culture - Final Methicillin resist S. aureus 12/21/18 09:25 Blood Blood Culture - Final 12/19/18 10:39 Blood Blood Culture Gram Stain - Final 12/19/18 10:39 Blood Blood Culture - Final Methicillin resist S. aureus 12/16/18 21:02 Vaginal Gram Stain - Final 12/16/18 21:02 Vaginal Genital Culture - Final Gardnerella vaginalis 12/18/18 09:05 Blood Blood Culture Gram Stain - Final 12/18/18 09:05 Blood Blood Culture - Final Methicillin resist S. aureus 12/19/18 10:39 Blood Blood Culture - Final 12/17/18 11:38 Blood Blood Culture Gram Stain - Final 12/17/18 11:38 Blood Blood Culture - Final Methicillin resist S. aureus 12/17/18 11:32 Blood Blood Culture Gram Stain - Final 12/17/18 11:32 Blood Blood Culture - Final Methicillin resist S. aureus 12/18/18 09:05 Blood Blood Culture - Final 12/16/18 21:02 Blood Blood Culture Gram Stain - Final 12/16/18 21:02 Blood Blood Culture - Final Methicillin resist S. 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 Antibiotics as per infectious disease.aggressive pulmonary toileting with incentive spirometer reinforced. Repeat blood cultures in progress. PICC line placement pending clear blood cultures. Subacute rehab at discharge.further recommendations to follow. The impression and plan of care has been dictated as directed. : I performed a history and examination of this patient, discussed the same with the dictator. I agree with the dictator's note ,documented as a scribe. Any additional findings or plans will be noted.
--- NOTE | 2018-12-24 17:38 | P.PN ---
Subjective Progress Note Date: 12/24/18 Principal diagnosis: Multiple bilateral pulmonary nodules likely septic nodules, COPD, discitis probably T11, MRSA bacteremia, IV drug abuse, adenopathy likely reactive related to MRSA infection and MRSA bacteremia 12/24/2018, patient seen and evaluated examined during the rounds. The status is stable she's denies any chest pain the lumps seen in the anterior chest wall and axillary region have reduced in size and waiting for PICC line better 12/22/2018, patient is in good distress is doing well she is waiting for her PICC line placement and placement in extended care facility her repeat cultures are pending, she has a YVETTE done which revealed presence of infective endoc arditis with vegetations on both tricuspid as well as pulmonic valve this confirms the vegetations metastatic to the lungs 12/21/2018, patient seen and evaluated examined during the rounds clinically he she is doing well cuff and congestion is improved she is a being considered for a PICC line placement for long-term antibiotics 12/20/2018 patient seen and evaluated examined care plan discussed with the staff, I and D has been canceled as ultrasound is positive for more of a lymphadenopathy rather than abscess, cardiology has been consulted for YVETTE as the preclinical probability of endocarditis very patient remains on IV vancomycin ID service following 12/18/2018, patient seen and evaluated examined during the rounds she is doing well however the blood cultures are positive for gram-positive cocci likely MRSA, ID services following spine surgery is following as well, patient has a multiple nodules in left axilla for which surgical consult has been requested, she is complaining of 2 new nodules developed in the sternal area and in cervical area there appeared to be a metastatic small abscess, 38-year-old female who was seen evaluated examined in the floor this patient is transferred from [place] where she was admitted for drug rehab, she has about 6 year history of the IV heroin use she presented and evaluated in emergency department from mid thoracic back pain that radiates down her back and up into her neck. Patient states it is radiating down her right leg as well. Patient states this pain started 3 days ago. Patient is also reporting multiple abscesses to the left axillary region. Patient states she did recently have these incised and drained and was started on Bactrim. States she has taken 2 full days of Bactrim at this point. States she has been having low-grade fevers around 99.5F as well as chills. Patient states she has been nauseated. Judith lopez is also reporting white vaginal discharge. States that she has had Trichomonas in the past and feels this is the same infection. She denies any pelvic pain, hematuria, dysuria, urinary urgency, urinary frequency. Patient is currently being treated at [facility] for intravenous drug use with heroin. Patient denies any recent rash, shortness breath, chest pain, abdominal pain, diarrhea, constipation, back pain, numbness, tingling, dizziness, weakness, headache, visual changes, or any other complaints. 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 and smoking Objective - Vital Signs Vital signs: Vital Signs Temp 98.5 F 12/24/18 14:29 Pulse 93 12/24/18 14:29 Resp 16 12/24/18 15:30 BP 130/81 12/24/18 14:29 Pulse Ox 99 12/24/18 14:29 Intake & Output 12/23/18 12/24/18 12/24/18 18:59 06:59 18:59 Intake Total 400 420 Balance 400 420 Weight 58.196 kg Intake: Oral 400 420 Other: Voiding Method Toilet Toilet # Voids 2 2 - Exam - Constitutional General appearance: average body habitus, cooperative, disheveled, mild distress - EENT Eyes: anicteric sclerae, EOMI, PERRLA, poor dentition, normal appearance ENT: normal oropharynx Ears: bilateral: normal - Neck Neck: normal ROM Carotids: bilateral: upstroke normal, bruit absent Thyroid: bilateral: normal size - Respiratory Respiratory: bilateral: CTA - Cardiovascular Rhythm: irregularly irregular Heart sounds: normal: S1, S2 - Neurologic Neurologic: CNII-XII intact - Musculoskeletal Musculoskeletal: gait normal, generalized weakness, strength equal bilaterally, noted irregular cutaneous superficial abscess formation left axillary area as well as sternal area and posterior cervical area which are a small side - Psychiatric Psychiatric: A&O x's 3, appropriate affect, intact judgment & insight Midthoracic vertebral tenderness is present along with left some paraspinal swelling - Labs CBC & Chem 7: 12/22/18 10:25 12/24/18 08:59 Labs: Microbiology - Last 24 Hours (Table) 12/23/18 12:03 Blood Culture Gram Stain - Preliminary Blood Blood Culture - Preliminary Presumptive MRSA 12/23/18 12:03 Blood Culture - Final Blood 12/20/18 16:47 Blood Culture - Preliminary Blood No Growth after 72 hours Assessment and Plan Assessment: 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
[2018-12-24] MEDS: DAPTOmycin 350 MG in SODIUM CHLORIDE 0.9% 50 ML IVPB SCH (18:19)
--- NOTE | 2018-12-24 19:34 | PN ---
PROGRESS NOTE DATE OF SERVICE: 12/24/2018. REASON FOR FOLLOWUP: MRSA bacteremia secondary to pulmonic and tricuspid valve endocarditis. INTERVAL HISTORY: The patient is currently afebrile. Patient has been breathing comfortably. The patient denies having any chest pain or shortness of breath. No cough, abdominal pain or any diarrhea. PHYSICAL EXAMINATION: Blood pressure is 130/81 with a pulse of 93, temperature 98.5, she is 99% on room air. General description is a middle aged female lying in bed in no distress. Respiratory system: Unlabored breathing. Clear to auscultation anteriorly. HEART S1, S2. Regular rate and rhythm. Abdomen: Soft, no tenderness. LABS: Creatinine 0.82 with CBC was done today. Blood cultures 12/23 has been positive. DIAGNOSTIC IMPRESSION AND PLAN: 1. Patient with MRSA bacteremia secondary to pulmonic and tricuspid valve endocarditis with fairly large vegetation, more likely responsible for bacteremia. The patient to still continue with daptomycin, blood culture repeated in the morning to document clearance of bacteremia. 2. 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 3. Continue supportive care. MMODL / IJN: [id number] /
[2018-12-25] MEDS: diphenhydrAMINE 25 MG CAP PO PRN (00:30)
[2018-12-25] MEDS: KETOROLAC 30 MG/ML 1 ML VIAL IVP SCH ×3 (06:01→16:57)
[2018-12-25 07:27] VITALS: RESP 16
[2018-12-25] MEDS: metroNIDAZOLE 500 MG TAB PO SCH ×2 (08:04→20:14)
[2018-12-25] MEDS: LOPERAMIDE 2 MG CAP PO PRN (08:04)
[2018-12-25] MEDS ORDERED: DAPTOmycin 500 MG in SODIUM CHLORIDE 0.9% 50 ML IVPB SCH (09:00)
[2018-12-25 09:38] LABS: Basophils # (A) 0.1 k/uL (0-0.2); Basophils % (A) 0 %; Eosinophils # (A) 0.2 k/uL (0-0.7); Eosinophils % (A) 1 %; HCT 36.6 % (34.0-46.0); HGB 11.3 gm/dL (11.4-16.0); Hypochromasia Slight; Lymphocytes % (A) 17 %; MCH 27.6 pg (25.0-35.0); MCHC 30.9 g/dL (31.0-37.0); MCV 89.5 fL (80.0-100.0); Mean Platelet Volume 6.6; Monocytes % (A) 4 %; Neutrophils # (A) 17.7 k/uL (1.3-7.7); Neutrophils % (A) 75 %; Platelet Count 421 k/uL (150-450); RBC 4.09 m/uL (3.80-5.40); RDW 15.4 % (11.5-15.5); WBC 23.6 k/uL (3.8-10.6)
[2018-12-25] MEDS: ACETAMINOPHEN TAB 325 MG TAB PO PRN (09:50)
[2018-12-25 10:01] LABS: C Reactive Protein 19.5 mg/L (<10.0); Calcium 9.1 mg/dL (8.4-10.2); Potassium 4.3 mmol/L (3.5-5.1)
[2018-12-25 10:41] LABS: Erythrocyte Sedimentation Rate 68 mm/hr (0-20)
[2018-12-25 11:02] VITALS: PULSE 92
[2018-12-25] MEDS: SODIUM CHLORIDE 0.9% 1,000 ML IV SCH (12:23)
[2018-12-25] MEDS: hydrOXYzine HCL 25 MG TAB PO PRN (14:09)
--- NOTE | 2018-12-25 14:27 | P.DS ---
Providers Date of admission: 12/17/18 02:20 Expected date of discharge: 12/25/18 Attending physician: Lucas Condon Consults: 12/17/18 08:01 Consult Physician Routine Consulting Provider: Theodore Becerra Consult Reason/Comments: hx IVDA, Axillary abscess, pulmonary nodules Do you want consulting provider notified?: Yes 12/17/18 08:57 Consult Physician Routine Consulting Provider: Clifton Villeda Consult Reason/Comments: lung nodules Do you want consulting provider notified?: Yes 12/17/18 08:58 Consult Physician Routine Consulting Provider: Shaila Razo Consult Reason/Comments: spine evaluation Do you want consulting provider notified?: Yes 12/20/18 10:29 Consult Physician Routine Consulting Provider: Fermin Gonzalez Consult Reason/Comments: yvette Do you want consulting provider notified?: Yes 12/22/18 12:14 Consult Physician Routine Consulting Provider: Josette Kraft Consult Reason/Comments: endocarditis Do you want consulting provider notified?: Yes Primary care physician: Stated None Hospital Course: Final Diagnoses: -MRSA bacteremia secondary to tricuspid and pulmonic valve endocarditis -Possible Septic emboli -IV drug abuse -Left axillary adenitis,abscess -Intractable back pain, MRI reported negative for discitis -COPD with active tobacco abuse -Normochromic normocytic anemia -Hepatitis C,follow-up with GI outpatient Hospital course:this is a 38-year-old female, history of IVDA, admitted with back pain, fever. Possible discitis, however MRI reported negative. Persistent MRSA bacteremia. YVETTE performed reporting pulmonary can tricuspid valve pericarditis with large vegetation on tricuspid valve. Evaluated by cardiothoracic surgery with medical treatment recommended.maintained on Daptomycin .Despite IV antibiotic therapy,WBC significantly increased at 23.6, worsening renal function, creatinine 1.33. Afebrile.infectious disease requesting transfer to tertiary center secondary to MRSA bacteremia secondary to tricuspid and pulmonic valve endocarditis-large vegatation on tricuspid, not responding to therapy,worsening.discussed with patient who is agreeable for transfer to [facility]. Dr. Campos has accepted patient. Patient is being transferred to [facility] in a stable condition with her prognosis. Gen.: Patient is alert and oriented 3, no acute distress Cardiovascular: Regular rate and rhythm, S1/S2 Lungs: Diminished breath sounds bilaterally otherwise clear Abdomen: Soft nontender nondistended positive bowel sounds Extremities: No edema Neuro: no focal deficits Microbiology 12/24/18 08:59 Blood Blood Culture Gram Stain - Preliminary 12/23/18 12:03 Blood Blood Culture Gram Stain - Final 12/23/18 12:03 Blood Blood Culture - Final Methicillin resist S. aureus 12/24/18 08:59 Blood Blood Culture - Final 12/20/18 16:47 Blood Blood Culture - Preliminary No Growth after 96 hours 12/23/18 12:03 Blood Blood Culture - Final 12/21/18 09:25 Blood Blood Culture Gram Stain - Final 12/21/18 09:25 Blood Blood Culture - Final Methicillin resist S. aureus 12/21/18 09:25 Blood Blood Culture - Final 12/19/18 10:39 Blood Blood Culture Gram Stain - Final 12/19/18 10:39 Blood Blood Culture - Final Methicillin resist S. aureus 12/16/18 21:02 Vaginal Gram Stain - Final 12/16/18 21:02 Vaginal Genital Culture - Final Gardnerella vaginalis 12/18/18 09:05 Blood Blood Culture Gram Stain - Final 12/18/18 09:05 Blood Blood Culture - Final Methicillin resist S. aureus 12/19/18 10:39 Blood Blood Culture - Final 12/17/18 11:38 Blood Blood Culture Gram Stain - Final 12/17/18 11:38 Blood Blood Culture - Final Methicillin resist S. aureus 12/17/18 11:32 Blood Blood Culture Gram Stain - Final 12/17/18 11:32 Blood Blood Culture - Final Methicillin resist S. aureus 12/18/18 09:05 Blood Blood Culture - Final 12/16/18 21:02 Blood Blood Culture Gram Stain - Final 12/16/18 21:02 Blood Blood Culture - Final Methicillin resist S. aureus 12/17/18 11:32 Blood Blood Culture - Final 12/17/18 11:38 Blood Blood Culture - Final 12/16/18 21:02 Blood Blood Culture - Final The impression and plan of care has been dictated as directed. : I performed a history and examination of this patient, discussed the same with the dictator. I agree with the dictator's note ,documented as a scribe. Any additional findings or plans will be noted. Time taken: 35 minutes Patient Condition at Discharge: Stable Plan - Discharge Summary New Discharge Prescriptions: No Action Multivitamins, Thera [Multivitamin (formulary)] 1 tab PO DAILY Acetaminophen Tab [Tylenol Tab] 650 mg PO Q6H PRN PRN Reason: Pain Ibuprofen [Motrin Ib] 200 mg PO Q4H PRN PRN Reason: Pain Discharge Medication List Multivitamins, Thera [Multivitamin (formulary)] 1 tab PO DAILY 12/11/17 [History] Acetaminophen Tab [Tylenol Tab] 650 mg PO Q6H PRN 12/17/18 [History] Ibuprofen [Motrin Ib] 200 mg PO Q4H PRN 12/17/18 [History] Follow up Appointment(s)/Referral(s): Fermin Gonzalez MD [STAFF PHYSICIAN] - 2 Weeks Сергей Del Real PAC [PHYSICIAN TWISTING FRAME FIXER] - 2 Weeks (Patient may follow up with Сергей Del Real PA-C or Dr. Isaiah Razo at [facility] in approximately 2-3 weeks for further evaluation.) None,Stated [Primary Care Provider] - 1-2 days Felipa Gamboa [NON-STAFF] - Activity/Diet/Wound Care/Special Instructions: 1. Patient should wear Spinomed TLSO while sitting upright at greater than 45, during increase activities, and during ambulation. Brace does not have to be worn while lying in bed or while bathing. 2. Patient should avoid excessive bending, twisting, lifting; no lifting greater than 10 pounds 3. Spinomed TLSO brace will be delivered to the bedside by Allan between 4-5 pm on 12/18/18
[2018-12-25 16:14] VITALS: BP 117/78; TEMP 98.5
--- NOTE | 2018-12-25 16:14 | PN ---
PROGRESS NOTE DATE OF SERVICE: 12/25/2018. REASON FOR FOLLOWUP: MRSA bacteremia with endocarditis. INTERVAL HISTORY: The patient is currently afebrile. The patient has been breathing comfortably. The patient was noticed to have in her room and spending more time in the bathroom. The patient currently denies using any drugs . No chest pain, shortness of breath, cough, abdominal pain. No diarrhea. PHYSICAL EXAMINATION: Blood pressure 105/72 with a pulse of 92, temperature 98.6, pulse ox 95% on room air. General description is a middle-aged female up in the room in no distress. Respiratory system: Unlabored breathing. Clear to auscultation anteriorly. Heart is S1, S2. Regular rate and rhythm. Abdomen soft. No tenderness. LABS: Hemoglobin is 11.3, white count of 23.6, BUN of 27, creatinine 1.33. CRP 19.5 with sed rate of 68. DIAGNOSTIC IMPRESSION AND PLAN: Patient with MRSA bacteremia secondary to tricuspid wall endocarditis with blood culture positive. Daptomycin dose up to 8 mg/kg yesterday. Blood cultures repeated today as well as tomorrow and jump in creatinine more likely secondary to Toradol and that should be discontinued IV fluid with concern for ongoing drug use. Urine drug screen will be ordered. The patient may benefit from transfer to tertiary care in view of the large size of this vegetation and persistent bacteremia. Continue supportive care. LEONIEL / GREGGN: [id number] /
[2018-12-25 17:56] LABS: Amphetamine Screen,Urine Not Detected (NotDetected); Barbiturate Screen,Urine Not Detected (NotDetected); Benzodiazepines Screen,Urine Not Detected (NotDetected); Cocaine Screen,Urine Detected (NotDetected); Methadone Screen, Urine Not Detected (NotDetected); Opiate Screen,Urine Not Detected (NotDetected); Oxycodone Screen, Urine Not Detected (NotDetected); Phencyclidine Screen,Urine Not Detected (NotDetected); Tricyclic Antidepressant,Urine Not Detected (NotDetected); Urn Cannabinoid Scrn Not Detected (NotDetected)
[2018-12-25] MEDS ORDERED: RIFAMPIN 300 MG CAP PO SCH (21:00)
== END 2018-12-25 20:35 | disposition short-term general hospital (02) | DRG 289 ==
LOC: EC 18:44 → 4MS4W 12-17 02:20
PROVIDERS: ADMIT Family Medicine; ATTEND Family Medicine
PROC: 05HC33Z Insertion of Infusion Device into Left Basilic Vein, Percutaneous Approach (ICD-10-PCS; 2018-12-18)
PROC: 05HA33Z Insertion of Infusion Device into Left Brachial Vein, Percutaneous Approach (ICD-10-PCS; 2018-12-18 13:30)
PROC: B246ZZ4 Ultrasonography of Right and Left Heart, Transesophageal (ICD-10-PCS; principal; 2018-12-21 10:00)
DX: I33.0 Acute and subacute infective endocarditis (principal); I76 Septic arterial embolism; I31.9 Disease of pericardium, unspecified; L02.412 Cutaneous abscess of left axilla; M48.54XA Collapsed vertebra, not elsewhere classified, thoracic region, initial encounter for fracture; B95.62 Methicillin resistant Staphylococcus aureus infection as the cause of diseases classified elsewhere; B19.20 Unspecified viral hepatitis C without hepatic coma; D64.9 Anemia, unspecified; F11.10 Opioid abuse, uncomplicated; F17.210 Nicotine dependence, cigarettes, uncomplicated; F32.9 Major depressive disorder, single episode, unspecified; F41.9 Anxiety disorder, unspecified; I25.10 Atherosclerotic heart disease of native coronary artery without angina pectoris; I88.9 Nonspecific lymphadenitis, unspecified; J44.9 Chronic obstructive pulmonary disease, unspecified; L73.9 Follicular disorder, unspecified; M46.94 Unspecified inflammatory spondylopathy, thoracic region; M51.44 Schmorl's nodes, thoracic region; M54.14 Radiculopathy, thoracic region; M51.34 Other intervertebral disc degeneration, thoracic region; N89.8 Other specified noninflammatory disorders of vagina; Z82.49 Family history of ischemic heart disease and other diseases of the circulatory system; Z86.14 Personal history of Methicillin resistant Staphylococcus aureus infection; Z86.711 Personal history of pulmonary embolism; Z89.022 Acquired absence of left finger(s)
CPT/HCPCS: 36410; 36415; 72129; 72157; 72158; 76937; 80048; 80053; 80074; 80202; 80306; 81003; 81025; 82553; 82565; 83605; 85025; 85652; 86140; 87040; 87070; 87077; 87186; 87205; 87491; 87591; 87808; 93005; 93306; 93312; 93320; 93325; 96361; 96365; 96366; 96367; 96375; 99285

== ENCOUNTER → 2019-03-27 | Outpatient (CLI) | payer OTHER ==
[2019-03-27 23:09] LABS: Total Bilirubin 0.3 mg/dL (0.3-1.2)
[2019-03-29 11:14] LABS: HCV Quant Log 6.51 (<1.08)
== END | disposition home or self-care (01) ==
LOC: LABWHC1 17:02
PROVIDERS: ATTEND Internal Medicine Infectious Disease
DX: B18.2 Chronic viral hepatitis C (principal)
CPT/HCPCS: 36415; 82247; 84450; 84460; 87522

== ENCOUNTER → 2019-04-03 | Outpatient (CLI) | payer OTHER ==
[2019-04-03 13:37] LABS: Basophils # (A) 0.1 k/uL (0-0.2); Basophils % (A) 1 %; Eosinophils # (A) 0.1 k/uL (0-0.7); Eosinophils % (A) 2 %; HCT 41.9 % (34.0-46.0); Lymphocytes # (A) 2.2 k/uL (1.0-4.8); Lymphocytes % (A) 28 %; MCH 27.5 pg (25.0-35.0); MCHC 31.1 g/dL (31.0-37.0); MCV 88.4 fL (80.0-100.0); Monocytes # (A) 0.4 k/uL (0-1.0); Monocytes % (A) 5 %; Neutrophils # (A) 5.1 k/uL (1.3-7.7); Neutrophils % (A) 63 %; Platelet Count 267 k/uL (150-450); RBC 4.74 m/uL (3.80-5.40); WBC 8.1 k/uL (3.8-10.6)
[2019-04-03 19:13] LABS: Estradiol 116.2 pg/mL; Follicle Stimulating Hormone 3.8 mIU/mL
[2019-04-03 19:20] LABS: T4, Free (Free Thyroxine) 0.9 ng/dL (0.80-1.80)
[2019-04-03 19:23] LABS: African American GFR (CKD) 83.3 (60.0-200.0); Albumin 4.2 g/dL (3.80-4.90); Albumin/Globulin Ratio 1.5 (1.60-3.17); Anion Gap 6.9 mmol/L (4.00-12.00); Calcium 9.1 mg/dL (8.7-10.3); Carbon Dioxide 18.1 mmol/L (21.6-31.8); Globulin 2.8 g/dL (1.6-3.3); Potassium 4.4 mmol/L (3.5-5.5); Total Bilirubin 0.2 mg/dL (0.3-1.2)
== END | disposition home or self-care (01) ==
LOC: LABWHC1 12:08
PROVIDERS: ATTEND Physician Assistant
DX: N64.52 Nipple discharge (principal); N92.0 Excessive and frequent menstruation with regular cycle
CPT/HCPCS: 36415; 80053; 82670; 83001; 83002; 84146; 84439; 84443; 84481; 85025

== ENCOUNTER → 2019-04-19 | Outpatient (CLI) | payer OTHER ==
--- NOTE | 2019-04-20 15:46 | ECHOF ---
Referral Reason:I38 Endocarditis MEASUREMENTS -------- HEIGHT: 157.5 cm WEIGHT: 72.1 kg BP: RVIDd: 3.0 cm (< 3.3) IVSd: 1.0 cm (0.6 - 1.1) LVIDd: 4.3 cm (3.9 - 5.3) LVPWd: 1.2 cm (0.6 - 1.1) IVSs: 1.4 cm LVIDs: 2.9 cm LVPWs: 1.5 cm LA Diam: 3.3 cm (2.7 - 3.8) LAESV Index (A-L): 23.90 ml/m Ao Diam: 3.2 cm (2.0 - 3.7) AV Cusp: 1.9 cm (1.5 - 2.6) LA Diam: 3.6 cm (2.7 - 3.8) MV EXCURSION: 19.436 mm (> 18.000) MV EF SLOPE: 123 mm/s (70 - 150) EPSS: 0.2 cm MV E Mauricio: 0.73 m/s MV DecT: 213 ms MV A Mauricio: 0.67 m/s MV E/A Ratio: 1.08 RAP: 5.00 mmHg RVSP: 21.70 mmHg TAPSE: 22.86 mm FINDINGS -------- Sinus rhythm. This was a technically good study. LV size, wall thickness and systolic function are normal, with an EF greater than 55%. The left marisel tricular size is normal. The diastolic filling pattern is normal for the age of the patient 11.36. The right ventricle is normal in size. Normal LA size by volume 22+/-6 ml/m2. The right atrial size is normal. The aortic valve is trileaflet and appears structurally normal. Trace amount of aortic regurgitatio n. The mitral valve is normal. Mild mitral regurgitation is present. Mild tricuspid regurgitation present. There is no evidence of pulmonary hypertension. The right v entricular systolic pressure, as measured by Doppler, is 21.70mmHg. Trace/mild (physiologic) pulmonic regurgitation. The aortic root size is normal. There is no pericardial effusion. CONCLUSIONS -------- 1. Sinus rhythm. 2. This was a technically good study. 3. LV size, wall thickness and systolic function are normal, with an EF greater than 55%. 4. The left ventricular size is normal. 5. The diastolic filling pattern is normal for the age of the patient 11.36 6. Normal LA size by volume 22+/-6 ml/m2. 7. The aortic valve is trileaflet and appears structurally normal. 8. Trace amount of aortic regurgitation. 9. Mild mitral regurgitation is present. 10. Mild tricuspid regurgitation present. 11. There is no evidence of pulmonary hypertension. 12. Trace/mild (physiologic) pulmonic regurgitation. 13. The aortic root size is normal. 14. There is no pericardial effusion. MUSIC SUPERVISOR: Cora De León RDCS
== END | disposition home or self-care (01) ==
LOC: RADECHMAIN 14:40
PROVIDERS: ATTEND Internal Medicine Infectious Disease
DX: I08.1 Rheumatic disorders of both mitral and tricuspid valves (principal)
CPT/HCPCS: 93306

== ENCOUNTER → 2019-04-19 | Outpatient (CLI) | payer OTHER ==
--- NOTE | 2019-04-19 16:03 | US ---
EXAMINATION TYPE: US pelvis complete transvag DATE OF EXAM: 04/19/2019 COMPARISON: NONE CLINICAL HISTORY: N94.6 Dysmenorrhea. patient has history of heroin use and did not have a cycle for 9 years, just got cycles back and they have been very heavy TECHNIQUE: TA/TV. Transabdominal sonographic images of the pelvis were acquired. Transvaginal sono graphic images Date of LMP: 04/13/2019 EXAM MEASUREMENTS: Uterus: 7.0 x 4.2 x 3.6 cm Endometrial Stripe: 0.7 cm Right Ovary: 2.6 x 2.6 x 2.6 cm Left Ovary: 2.6 x 1.7 x 2.2 cm 1. Uterus: Anteverted wnl 2. Endometrium: wnl 3. Right Ovary: dominate follicle seen, wnl 4. Left Ovary: wnl 5. Bilateral Adnexa: peristalsing bowel 6. Posterior cul-de-sac: wnl IMPRESSION: 1. No acute pelvic ultrasound abnormality. 2. Small amount of free fluid is present within the pelvis.
== END | disposition home or self-care (01) ==
LOC: RADUSWWP 14:09
PROVIDERS: ATTEND Internal Medicine
DX: N94.6 Dysmenorrhea, unspecified (principal)
CPT/HCPCS: 76830; 76856

== ENCOUNTER → 2019-09-13 | Outpatient (CLI) | payer OTHER ==
[2019-09-13 15:07] LABS: Basophils % (A) 0 %; Eosinophils # (A) 0.1 k/uL (0-0.7); Eosinophils % (A) 1 %; HCT 43.2 % (34.0-46.0); HGB 13.9 gm/dL (11.4-16.0); Lymphocytes # (A) 2.7 k/uL (1.0-4.8); Lymphocytes % (A) 32 %; MCH 29.6 pg (25.0-35.0); MCHC 32.3 g/dL (31.0-37.0); MCV 91.6 fL (80.0-100.0); Mean Platelet Volume 7.8; Monocytes # (A) 0.4 k/uL (0-1.0); Monocytes % (A) 5 %; Neutrophils # (A) 4.9 k/uL (1.3-7.7); Neutrophils % (A) 59 %; Platelet Count 312 k/uL (150-450); RBC 4.71 m/uL (3.80-5.40); RDW 14.9 % (11.5-15.5); WBC 8.3 k/uL (3.8-10.6)
[2019-09-14 03:17] LABS: ALT 13 U/L (8-44); AST 22 U/L (13-35); African American GFR (CKD) 74.3 (60.0-200.0); Albumin/Globulin Ratio 2.18 (1.60-3.17); Alkaline Phosphatase 100 U/L (41-126); BUN/Creat Ratio 15.45 Ratio (12.00-20.00); Bilirubin, Conjugated <0.20 mg/dL (0.20-0.40); Calcium 9.2 mg/dL (8.7-10.3); Chloride 106 mmol/L (96-109); Globulin 2.2 g/dL (1.6-3.3); Glucose 95 mg/dL (70-110); Non-African American GFR(CKD) 64.1 (60.0-200.0); Potassium 4.3 mmol/L (3.5-5.5); Sodium 138 mmol/L (135-145); Total Bilirubin 0.2 mg/dL (0.3-1.2)
== END | disposition home or self-care (01) ==
LOC: LABWHC1 13:22
PROVIDERS: ATTEND Internal Medicine Infectious Disease
DX: N39.0 Urinary tract infection, site not specified (principal); B18.2 Chronic viral hepatitis C
CPT/HCPCS: 36415; 80048; 80076; 85025; 87521

== ENCOUNTER 2020-01-12 19:50 | Emergency (ER) | payer OTHER ==
[2020-01-12 19:59] VITALS: BP 141/92; PULSE 94; RESP 18; TEMP 98.6
--- NOTE | 2020-01-12 20:36 | XR ---
EXAMINATION TYPE: XR forearm LT, XR wrist complete LT DATE OF EXAM: 01/12/2020 CLINICAL HISTORY: Crushing injury yesterday with pain. TECHNIQUE: Two views of the left forearm are obtained. 4 views left wrist. COMPARISON: None. FINDINGS: There is no acute fracture or dislocation seen in the left radius or ulna. Left elbow join t space appears within normal limits. There is linear density suspicious for foreign body or needle f ragment measuring 1.3 cm length at level of the distal humerus slight ulnar aspect. There is no acute fracture or dislocation in the left wrist. Carpal joint spaces are maintained. Over lying soft tissue is unremarkable. IMPRESSION: As above.
--- NOTE | 2020-01-12 20:48 | ED ---
Upper Extremity HPI - General Chief Complaint: Extremity Injury, Upper Stated Complaint: LT arm injury [facility] Time Seen by Provider: 01/12/20 20:05 Source: patient Mode of arrival: ambulatory Limitations: no limitations - History of Present Illness Initial Comments: 39-year-old female presenting today for chief complaint of left forearm pain. Patient states that she pulled a bin onto her left forearm she states that it is slightly swollen on the dorsal aspect. Patient denies any bruising. Patient does have limited range of motion at the wrist hands or digits. Patient denies any pain at the elbow or shoulder. Patient denies any head injury or injury to any other aspect of the body. The pain persisted patient was told to come to the emergency department for further evaluation. Patient denies additional complaints denies any numbness tingling loss of sensation, coolness or pallor of the extremity. - Related Data Home Medications Medication Instructions Recorded Confirmed Multivitamins, Thera [Multivitamin 1 tab PO DAILY 12/11/17 12/17/18 (formulary)] Acetaminophen Tab [Tylenol Tab] 650 mg PO Q6H PRN 12/17/18 12/17/18 Ibuprofen [Motrin Ib] 200 mg PO Q4H PRN 12/17/18 12/17/18 Allergies Allergy/AdvReac Type Severity Reaction Status Date / Time No Known Allergies Allergy Verified 01/12/20 19:59 Review of Systems ROS Statement: Those systems with pertinent positive or pertinent negative responses have been documented in the HPI. ROS Other: All systems not noted in ROS Statement are negative. 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 No nystagmus. There is normal conjunctiva bilaterally. No signs of icterus. Cardiovascular: There is a regular rate and rhythm. No murmur, rub or gallop is appreciated. Respiratory: Lungs are clear to auscultation, respirations are non-labored, breath sounds are equal. No wheezes, stridor, rales, or rhonchi. Musculoskeletal: Normal ROM, no tenderness at wrists/elbow and shoulder. Pain with pronation and supination of the left forearm. Tenderness over the dorsal aspect of the left forearm, no eccyhmosis. Strength 5/5. Sensation intact. Radial pulses equal bilaterally 2+. No redness swelling or changes in skin noted at the antecubital fossa of the left arm Neurological: A&O x 3. CN II-XII intact grossly, There are no obvious motor or sensory deficits. Coordination appears grossly intact. Speech is normal. Skin: Skin is warm and dry and no rashes or lesions are noted. Psychiatric: Cooperative, appropriate mood & affect, normal judgment. Limitations: no limitations Course Vital Signs 01/12/20 01/12/20 19:56 20:55 Temperature 98.6 F 98.6 F Pulse Rate 94 94 Respiratory 18 18 Rate Blood Pressure 141/92 141/92 O2 Sat by Pulse 100 100 Oximetry Medical Decision Making - Medical Decision Making 39yo female presenting for cc of forearm pain after injury at work. Some mild soft tissue swelling. No acute osseous process. No acute foreign body noted at the left before meals on XR. Patient states must be old, denies current drug use. Patient is neurovascularly intact. Will be discharge wtih TYLER chaparro, PCP f/u. Disposition Clinical Impression: Left forearm pain, Foreign body of left upper arm Disposition: HOME SELF-CARE Condition: Good Additional Instructions: Please use medication as discussed. Please follow-up with family doctor in the next 2 days. Please return to emergency room if the symptoms increase or worsen or for any other concerns. Is patient prescribed a controlled substance at d/c from ED?: No Referrals: Daniel Lala DO [Primary Care Provider] - 1-2 days Time of Disposition: 20:48
== END 2020-01-12 20:58 | disposition home or self-care (01) ==
LOC: EC 19:50
DX: S40.852A Superficial foreign body of left upper arm, initial encounter (principal); M79.632 Pain in left forearm; F17.200 Nicotine dependence, unspecified, uncomplicated; W45.8XXA Other foreign body or object entering through skin, initial encounter; Y92.69 Other specified industrial and construction area as the place of occurrence of the external cause; Y99.0 Civilian activity done for income or pay
CPT/HCPCS: 99283